=== PATIENT | male | born 1945 | race Hispanic/Latino ===

== ENCOUNTER 2017-03-04 08:02 | Day surgery (SDC) | payer OTHER, MEDICARE ==
[2017-02-27 14:07] LABS: BASOPHILS % 0.1 % (0.0-1.0); EOSINOPHILS # (AUTO) 0.4 (0.0-0.4); EOSINOPHILS % 5.2 % (0.0-6.0); HEMATOCRIT 35.1 % (38.2-49.6); HEMOGLOBIN 11.6 g/dL (14.0-18.0); LYMPHOCYTES % 27.3 % (18.0-39.1); MEAN CORPUSCULAR HEMOGLOBIN 30.3 pg (28-32); MEAN CORPUSCULAR VOLUME 91.6 fL (81-99); MONOCYTES # (AUTO) 0.6 (0.2-0.8); MONOCYTES % 8.3 % (4.4-11.3); NEUTROPHILS # (AUTO) 4.3 (2.1-6.9); PLATELET COUNT 281 x10e3/uL (140-360); RED BLOOD COUNT 3.83 x10e6/uL (4.3-5.7); RED CELL DISTRIBUTION WIDTH 13.2 % (11.7-14.4)
[2017-02-27 14:09] LABS: BILIRUBIN,URINE NEGATIVE (NEGATIVE); CLARITY,URINE CLEAR (CLEAR); COLOR,URINE YELLOW (YELLOW); KETONES,URINE NEGATIVE (NEGATIVE); LEUKOCYTE ESTERASE ,URINE NEGATIVE (NEGATIVE); NITRITE,URINE NEGATIVE (NEGATIVE); PROTEIN,URINE DIPSTICK NEGATIVE (NEGATIVE); URINE UROBILINOGEN 0.2 mg/dL (0.2 - 1)
[2017-02-27 14:27] LABS: ALBUMIN 3.8 g/dL (3.5-5.0); ALBUMIN/GLOBULIN RATIO 0.8 (0.8-2.0); ANION GAP 13.8 mmol/L (8-16); CALCIUM 9.5 mg/dL (8.4-10.2); CREATININE, SERUM 1.6 mg/dL (0.72-1.25); POTASSIUM 4.8 mmol/L (3.5-5.1)
--- NOTE | 2017-02-27 14:46 | Diagnostic Imaging Report ---
PROCEDURE: Frontal and lateral views of the chest. COMPARISON: Patients [facility], DX, CHEST SINGLE (PORTABLE), 11/28/2013, 23:05. INDICATIONS: PRE-OP FINDINGS: Lines/tubes: None. Lungs: Calcified granuloma in the right midlung again observed. There is no evidence of pneumonia or pulmonary edema. Pleura: Biapical pleural thickening with left apical calcification again observed. There is no pleural effusion or pneumothorax. Heart and mediastinum: The heart and the mediastinum are normal. Bones: No acute bony abnormality. Mild degenerative changes of the thoracic spine. Tubing projected on the upper abdomen on the lateral view for complete evaluation decubitus examination. IMPRESSION: 1. No acute thoracic abnormality. Cordell Bautista M.D. Dictated by: Cordell Bautista M.D. on 02/27/2017 at 14:53 Electronically approved by: Cordell Bautista M.D. on 02/27/2017 at 14:53
[~2017-03-04] VITALS: Ht 154.9 cm; Wt 76.2 kg
[~2017-03-04 08:02] MED LIST: ACETAMINOPHEN325 M1 PO; AMLODIPINE BESY10 MG PO; ASPIRIN EC81 MG PO; ATORVASTATIN CA20 MG PO; AUGMENTIN 875-1 EACH PO; CLOPIDOGREL75 MG PO; LABETALOL HCL100 MG PO; LOSARTAN-HCTZ1 EAC1 PO; MAGNESIUM OXID400 MG PO; METOPROLOL SUCC50 MG PO; NIFEDICAL XL30 MG PO; OMEGA-3 + VITA1 EAC1; PANTOPRAZOLE SO40 MG PO; PEPCID20 MG PO; PREDNISONE10 MG PO; SIMVASTATIN40 MG PO; SODIUM BICARBO650 MG PO; TRAZODONE HCL50 MG PO
[2017-03-04] MEDS ORDERED: LABETALOL HCL100 MG PO (08:37)
[2017-03-04] MEDS ORDERED: BUPIVACAINE 0.25%/EPI 30ML SDV INJ ONE (11:22)
[2017-03-04] MEDS ORDERED: IOPAMIDOL 610MG/1ML 300 MG/ML VIAL IV ONE (11:22)
[2017-03-04] MEDS ORDERED: LEVOFLOXACIN 500MG/D5W 100ML 100 ML IV ONE (11:23)
[2017-03-04] MEDS: SODIUM CHLORIDE 0.9% 1000ML 1,000 ML IV SCH ×2 (13:21→22:36)
[2017-03-04] MEDS ORDERED: ONDANSETRON HCL INJ 2 MG/ML VIAL IV PRN (13:30)
[2017-03-04] MEDS ORDERED: HYDROMORPHONE 1MG/1ML INJ IV PRN (13:30)
[2017-03-04] MEDS ORDERED: LEVOFLOXACIN 500MG/D5W 100ML 100 ML IV SCH (13:30)
[2017-03-04] MEDS ORDERED: HYDROMORPHONE 2MG/ML INJ IV PRN (13:45)
[2017-03-04] MEDS: PANTOPRAZOLE 40 MG 10ML VIAL IV SCH (14:45)
[2017-03-04] MEDS ORDERED: PANTOPRAZOLE 40 MG 10ML VIAL ONE (14:46)
[2017-03-04 14:56] VITALS: BP 177/81
[2017-03-04] MEDS: HYDROCODONE/APAP 7.5MG-325MG 1 EA TAB PO PRN ×2 (15:36→22:39)
[2017-03-04 16:07] VITALS: BP 177/81
[2017-03-04] MEDS ORDERED: LIDOCAINE HCL 2% LOCAL INJ 5 ML SDV VIAL INJ ONE (16:59)
[2017-03-04] MEDS ORDERED: NEOSTIGMINE 5 MG/5ML SYR ONE (16:59)
[2017-03-04] MEDS ORDERED: GLYCOPYRROLATE INJ 1MG/ 5 ML SYR ONE (16:59)
[2017-03-04] MEDS ORDERED: EPHEDRINE SULFATE INJ 50 MG/10 ML SYR ONE (16:59)
[2017-03-04] MEDS ORDERED: ONDANSETRON HCL INJ 2 MG/ML VIAL ONE (16:59)
[2017-03-04] MEDS ORDERED: PROPOFOL IV EMULSION 10 MG/ML 20 ML VIAL ONE (16:59)
[2017-03-04] MEDS ORDERED: SEVOFLURANE INHAL SOLN 250 ML PEN BTL ONE (16:59)
[2017-03-04] MEDS ORDERED: ROCURONIUM BROMIDE 10 MG/ML 5ML VIAL ONE (16:59)
[2017-03-04] MEDS ORDERED: DEXAMETHASONE SOD PHOS INJ 4 MG/ML VIAL ONE (16:59)
[2017-03-04] MEDS: LABETALOL HCL 100 MG TAB PO SCH (17:12)
[2017-03-04] MEDS ORDERED: FENTANYL CITRATE/PF 100MCG/2 ML INJ ONE (17:44)
[2017-03-04] MEDS ORDERED: MIDAZOLAM HCL 2 MG/2 ML VIAL ONE (17:44)
[2017-03-04 20:20] VITALS: BP 152/70
[2017-03-05 00:12] VITALS: BP 136/64
[2017-03-05 05:05] VITALS: BP 134/80
[2017-03-05 06:30] LABS: BASOPHILS % 0.1 % (0.0-1.0); HEMATOCRIT 29.2 % (38.2-49.6); HEMOGLOBIN 9.8 g/dL (14.0-18.0); LYMPHOCYTES # (AUTO) 1.2 (1.0-3.2); LYMPHOCYTES % 10.1 % (18.0-39.1); MEAN CORPUSCULAR HEMOGLOBIN 30.4 pg (28-32); MEAN CORPUSCULAR HGB CONC 33.6 g/dL (31-35); MEAN CORPUSCULAR VOLUME 90.7 fL (81-99); MONOCYTES # (AUTO) 0.9 (0.2-0.8); MONOCYTES % 7.1 % (4.4-11.3); NEUTROPHILS # (AUTO) 10.1 (2.1-6.9); NEUTROPHILS % 82.3 % (38.7-80.0); PLATELET COUNT 247 x10e3/uL (140-360); RED BLOOD COUNT 3.22 x10e6/uL (4.3-5.7); RED CELL DISTRIBUTION WIDTH 13.3 % (11.7-14.4)
[2017-03-05 07:02] LABS: ALBUMIN/GLOBULIN RATIO 0.8 (0.8-2.0); ANION GAP 12.2 mmol/L (8-16); CALCIUM 8.4 mg/dL (8.4-10.2); CREATININE, SERUM 1.29 mg/dL (0.72-1.25); POTASSIUM 4.2 mmol/L (3.5-5.1)
[2017-03-05 08:12] VITALS: BP 171/75
[2017-03-05] MEDS: LABETALOL HCL 100 MG TAB PO SCH (08:22)
[2017-03-05] MEDS: SODIUM CHLORIDE 0.9% 1000ML 1,000 ML IV SCH (08:35)
[2017-03-05] MEDS ORDERED: NIFEDIPINE CR 30 MG TAB PO SCH (09:00)
[2017-03-05] MEDS ORDERED: LEVOFLOXACIN 500MG/D5W 100ML 100 ML IV SCH (10:00)
[2017-03-05 12:11] VITALS: BP 160/72
[2017-03-05] MEDS: PANTOPRAZOLE 40 MG 10ML VIAL IV SCH (14:26)
[2017-03-05 15:00] VITALS: BP 180/74
[2017-03-05] MEDS ORDERED: HYDROMORPHONE 1MG/1ML INJ IV PRN (15:00)
--- NOTE | 2017-05-13 12:47 | Operative Report ---
DATE OF PROCEDURE: March 04, 2017 PREOPERATIVE DIAGNOSES: Cholecystitis, cholelithiasis, and retained common bile duct stent. POSTOPERATIVE DIAGNOSES: Cholecystitis, cholelithiasis, and retained common bile duct stent. OPERATIONS PERFORMED: Laparoscopic cholecystectomy and esophagogastroduodenoscopy with removal of biliary stent. GROCERY PACKER: Dr. Agustin Ruiz ANESTHESIA: General. COMPLICATIONS: None. ESTIMATED BLOOD LOSS: Minimal. DESCRIPTION OF PROCEDURE: With the patient lying in bed in the supine position under good general endotracheal anesthesia, the abdomen was prepped with Betadine solution and draped in the usual manner. Veress needle was introduced into the umbilicus and pneumoperitoneum was established without any difficulty. An 11 mm trocar was placed into the umbilicus and a 10 mm video laparoscope was placed into the intra-abdominal cavity. Under direct vision, three 5 mm trocars were placed in the right subcostal region. Video laparoscopy at this point revealed a gallbladder that contained multiple stones. There were no other major abnormalities identified in the abdominal cavity. The adhesions to the neck of the gallbladder were then taken down. The peritoneum overlying the neck of the gallbladder was then opened and the cystic duct was identified and followed to its junction with the common duct. The cystic duct was then circumferentially dissected away from the common duct, doubly clipped, and divided. The cystic artery was similarly doubly clipped and divided. Gallbladder was then slowly and carefully taken off the liver bed using the cautery scissors and perfect hemostasis was ascertained. The gallbladder was then grasped through the umbilical port and removed without any difficulty. Video laparoscopy was then again carried out. The liver bed was found to be perfectly dry. The excess fluid was aspirated. The pneumoperitoneum was evacuated and all the trocars were removed under direct vision. The midline fascia at the umbilicus was then closed with [id number] of 0 Vicryl. All layers were infiltrated on the way out with solution 0.25% Marcaine. Subcutaneous tissue was approximated with 3-0 Vicryl and the skin was closed with subcuticular 5-0 Vicryl. Benzoin, Steri-Strips, and Band-Aids were applied. Sponge, lap, and needle count was correct. The flexile Olympus gastroscope was then introduced into the back of throat and slowly and carefully advanced down the esophagus. The entire length of the esophagus was found to be within normal limits. The stomach was then entered and insufflated and found to be within normal limits as well. The pylorus was entered and the duodenum was found to be within normal limits. The stent was then easily visualized and was then grasped with a snare and removed out the mouth without any difficulty. The patient tolerated both procedures well and returned to the recovery room in stable condition. Job#: [id number] VAS
== END 2017-03-05 15:17 | disposition home or self-care (01) ==
LOC: OR 08:02 → IMCU 13:22
PROVIDERS: ADMIT Surgery; ATTEND Surgery
DX: K80.10 Calculus of gallbladder with chronic cholecystitis without obstruction (principal); Z45.89 Encounter for adjustment and management of other implanted devices; I25.10 Atherosclerotic heart disease of native coronary artery without angina pectoris; I12.9 Hypertensive chronic kidney disease with stage 1 through stage 4 chronic kidney disease, or unspecified chronic kidney disease; N18.9 Chronic kidney disease, unspecified; Z01.810 Encounter for preprocedural cardiovascular examination; Z01.812 Encounter for preprocedural laboratory examination; Z01.818 Encounter for other preprocedural examination; Z86.73 Personal history of transient ischemic attack (TIA), and cerebral infarction without residual deficits
CPT/HCPCS: 36415 ×2; 43247; 47562; 71020; 74300; 80053 ×2; 81003; 82150; 85025 ×2; 88304; 93005; C1766; G0378 ×2; J1100; J1956 ×2; J2001; J2250; J2405; J7030 ×2; Q9967; 43239

== ENCOUNTER 2020-02-23 17:53 | Inpatient (IN) | payer OTHER ==
[~2020-02-23] VITALS: Ht 154.9 cm; Wt 76.2 kg
[2020-02-23 18:58] LABS: BASOPHILS % 0.2 % (0.0-1.0); EOSINOPHILS % 0.5 % (0.0-6.0); HEMATOCRIT 31.7 % (38.2-49.6); HEMOGLOBIN 10.4 g/dL (14.0-18.0); LYMPHOCYTES # (AUTO) 0.5 (1.0-3.2); LYMPHOCYTES % 5.5 % (18.0-39.1); MEAN CORPUSCULAR HEMOGLOBIN 30.1 pg (28-32); MEAN CORPUSCULAR HGB CONC 32.8 g/dL (31-35); MEAN CORPUSCULAR VOLUME 91.6 fL (81-99); MONOCYTES # (AUTO) 0.3 (0.2-0.8); MONOCYTES % 3.9 % (4.4-11.3); NEUTROPHILS # (AUTO) 7.8 (2.1-6.9); NEUTROPHILS % 89.4 % (38.7-80.0); PLATELET COUNT 125 x10e3/uL (140-360); RED BLOOD COUNT 3.46 x10e6/uL (4.3-5.7); RED CELL DISTRIBUTION WIDTH 13.4 % (11.7-14.4)
--- NOTE | 2020-02-23 19:05 | Emergency Department Note ---
History of Present Illnes History of Present Illness Chief Complaint: General Medicine Complaints History of Present Illness This is a 74 year old male arrives the ED with complaints of fever, one episode of vomiting and concerns of blood pressure fluctuations. Patient denies any other complaints.. Chief Complaint Comment Patient in from home via EMS with reports of fever of unknown origin and blood pressure fluctuations that started yesterday. Patient reports he vomited once yesterday and checked his blood pressure after and it was high. This morning he checked his blood pressure and it was much better. Patient reports he called his PCP and told them about the fever and blood pressures and they told him to call 911 and go to the emergency room. Historian: Patient Arrival Mode: [place] Head Up Operator Required: No Onset (how long ago): day(s) Severity: mild Onset quality: sudden Duration (how long): day(s) Timing of current episode: constant Progression: unchanged Past Medical/Family History Physician Review I have reviewed the patient's past medical and family history. Any updates have been documented here. Past Medical History Recent Fever: Yes Clinical Suspicion of Infectio: Yes New/Unexplained Change in Ment: No Past Medical History: Hypertension, Diabetes, Hyperlipedemia Other Medical History: CAROTID STENOSIS HYPERLIPIDEMIA Past Surgical History: Appendectomy Other Surgery: Carotid endarterectomy Other Last Tetanus: UNK Review of Systems Review of Systems Constitutional: Reports as per HPI, Reports chills, Reports fever EENTM: Reports no symptoms Cardiovascular: Reports no symptoms Respiratory: Reports no symptoms Gastrointestinal: Reports no symptoms Genitourinary: Reports no symptoms Musculoskeletal: Reports no symptoms Integumentary: Reports no symptoms Neurological: Reports as per HPI, Reports weakness Psychological: Reports no symptoms Endocrine: Reports no symptoms Hematological/Lymphatic: Reports no symptoms Physical Exam Related Data Allergies: Coded Allergies: amoxicillin (Verified Allergy, Intermediate, RASH, 03/01/17) clavulanic acid (Verified Allergy, Intermediate, RASH, 03/01/17) Triage Vital Signs Vital Signs Date Time Temp Pulse Resp B/P (MAP) Pulse Ox O2 Delivery O2 Flow Rate FiO2 02/23/20 18:21 102.7 89 18 160/57 100 Room Air Vital signs reviewed: Yes Physical Exam CONSTITUTIONAL Constitutional: Present well-developed, Present well-nourished HENT HENT: Present normocephalic, Present atraumatic, Present oropharynx clear/moist, Present nose normal HENT L/R: Present left ext ear normal, Present right ext ear normal EYES Eyes: Reports PERRL, Reports conjunctivae normal NECK Neck: Present ROM normal PULMONARY Pulmonary: Present effort normal, Present breath sounds normal CARDIOVASCULAR Cardiovascular: Present regular rhythm, Present heart sounds normal, Present capillary refill normal, Present normal rate GASTROINTESTINAL Abdominal: Present soft, Present nontender, Present bowel sounds normal GENITOURINARY Genitourinary: Present exam deferred SKIN Skin: Present warm, Present dry MUSCULOSKELETAL Musculoskeletal: Present ROM normal NEUROLOGICAL Neurological: Present alert, Present oriented x 3, Present no gross motor or sensory deficits PSYCHOLOGICAL Psychological: Present mood/affect normal, Present judgement normal Results Laboratory Result Diagram: 02/23/20 1836 Laboratory Laboratory Tests Test 02/23/20 18:36 White Blood Count 8.75 x10e3/uL (4.8-10.8) Red Blood Count 3.46 x10e6/uL (4.3-5.7) Hemoglobin 10.4 g/dL (14.0-18.0) Hematocrit 31.7 % (38.2-49.6) Mean Corpuscular Volume 91.6 fL (81-99) Mean Corpuscular Hemoglobin 30.1 pg (28-32) Mean Corpuscular Hemoglobin Concent 32.8 g/dL (31-35) Red Cell Distribution Width 13.4 % (11.7-14.4) Platelet Count 125 x10e3/uL (140-360) Neutrophils (%) (Auto) 89.4 % (38.7-80.0) Lymphocytes (%) (Auto) 5.5 % (18.0-39.1) Monocytes (%) (Auto) 3.9 % (4.4-11.3) Eosinophils (%) (Auto) 0.5 % (0.0-6.0) Basophils (%) (Auto) 0.2 % (0.0-1.0) Neutrophils # (Auto) 7.8 (2.1-6.9) Lymphocytes # (Auto) 0.5 (1.0-3.2) Monocytes # (Auto) 0.3 (0.2-0.8) Eosinophils # (Auto) 0.0 (0.0-0.4) Basophils # (Auto) 0.0 (0.0-0.1) Absolute Immature Granulocyte (auto 0.04 x10e3/uL (0-0.1) Lab results reviewed: Yes Laboratory comments Laboratory Tests Test 02/24/20 01:07 02/23/20 21:17 02/23/20 20:15 02/23/20 18:36 Creatine Kinase 170 IU/L (30-200) 147 IU/L (30-200) Creatine Kinase MB 1.00 ng/mL (0-5.0) 1.40 ng/mL (0-5.0) Troponin I 0.031 ng/mL (0-0.300) 0.038 ng/mL (0-0.300) Urine Color Yellow (YELLOW) Urine Clarity Clear (CLEAR) Urine pH 6.5 (5 - 7) Urine Specific [place] 1.020 (1.010-1.025) Urine Protein 2+ (NEGATIVE) Urine Glucose (UA) Negative (NEGATIVE) Urine Ketones Negative (NEGATIVE) Urine Blood Moderate (NEGATIVE) Urine Nitrite Negative (NEGATIVE) Urine Bilirubin Negative (NEGATIVE) Urine Urobilinogen 0.2 mg/dL (0.2 - 1) Urine Leukocyte Esterase Negative (NEGATIVE) Urine RBC 6-10 /HPF (0-5) Urine WBC 0-5 /HPF (0-5) Urine Epithelial Cells Few /LPF (NONE) Urine Amorphous Sediment Few (FEW) Urine Bacteria Moderate /HPF (NONE) Coronavirus (PCR) Not detected (NOTDETECTED) White Blood Count 8.75 x10e3/uL (4.8-10.8) Red Blood Count 3.46 x10e6/uL (4.3-5.7) Hemoglobin 10.4 g/dL (14.0-18.0) Hematocrit 31.7 % (38.2-49.6) Mean Corpuscular Volume 91.6 fL (81-99) Mean Corpuscular Hemoglobin 30.1 pg (28-32) Mean Corpuscular Hemoglobin Concent 32.8 g/dL (31-35) Red Cell Distribution Width 13.4 % (11.7-14.4) Platelet Count 125 x10e3/uL (140-360) Neutrophils (%) (Auto) 89.4 % (38.7-80.0) Lymphocytes (%) (Auto) 5.5 % (18.0-39.1) Monocytes (%) (Auto) 3.9 % (4.4-11.3) Eosinophils (%) (Auto) 0.5 % (0.0-6.0) Basophils (%) (Auto) 0.2 % (0.0-1.0) Neutrophils # (Auto) 7.8 (2.1-6.9) Lymphocytes # (Auto) 0.5 (1.0-3.2) Monocytes # (Auto) 0.3 (0.2-0.8) Eosinophils # (Auto) 0.0 (0.0-0.4) Basophils # (Auto) 0.0 (0.0-0.1) Absolute Immature Granulocyte (auto 0.04 x10e3/uL (0-0.1) Sodium Level 132 mmol/L (136-145) Potassium Level 4.3 mmol/L (3.5-5.1) Chloride Level 100 mmol/L (98-107) Carbon Dioxide Level 23 mmol/L (22-29) Anion Gap 13.3 mmol/L (8-16) Blood Urea Nitrogen 50 mg/dL (7-26) Creatinine 3.20 mg/dL (0.72-1.25) Estimat Glomerular Filtration Rate 19 ML/MIN (60-) BUN/Creatinine Ratio 16 (6-25) Glucose Level 115 mg/dL (74-118) Lactic Acid Level 1.3 mmol/L (0.5-2.0) Calcium Level 8.4 mg/dL (8.4-10.2) Total Bilirubin 1.0 mg/dL (0.2-1.2) Aspartate Amino Transf (AST/SGOT) 35 IU/L (5-34) Alanine Aminotransferase (ALT/SGPT) 41 IU/L (0-55) Alkaline Phosphatase 59 IU/L (40-150) Total Protein 8.6 g/dL (6.5-8.1) Albumin 3.4 g/dL (3.5-5.0) Globulin 5.2 g/dL (2.3-3.5) Albumin/Globulin Ratio 0.7 (0.8-2.0) Lipase 45 U/L (8-78) Imaging Imaging results reviewed: Yes Impressions IMPRESSION: 1. Findings may reflect bilateral lower lobe infection (pneumonia) or inflammatory etiology. 2. Diverticulosis coli without diverticulitis. 3. Bilateral high attenuation renal lesions, the largest in the lower pole of the left measuring 1.6 cm may represent hyperdense cyst, however, not fully evaluated with this noncontrast exam. Given the presence of mild retroperitoneal lymphadenopathy, recommend further evaluation with nonemergent CT abdomen pelvis without and with contrast renal mass protocol. 4. Mild retroperitoneal and pelvic lymphadenopathy may represent neoplastic etiology. 5. Enlarged prostate. Signed by: Dr. Cordell Bautista M.D. on 02/23/2020 9:21 PM Critical Care Time Total Critical Care Time (min): 75 Critical care time exclusive o: separately billable procedures Critcal care necessary due to: sepsis, shock Assessment & Plan Medical Decision Making MDM 74-year-old male ED with initial complaints of fever and plus routing blood pressures. Initially concerns for severe sepsis 02/23/200 are present and patient was treated as impending sepsis. Patient's chest x-ray and CT scan were concerning for bilateral pneumonia which was the source of his infection. Patient had acute renal failure which was a cause for organ dysfunction. Patient met SIRS criteria on arrival. Blood cultures and lactic acid as well as broad-spectrum antibiotics given. Lactic acid noted to be 1.3 and there were no indications for repeat Concerns of septic shock present at 2300 with 2 blood pressures resulting in a map less than 65 weight based volume reassessment, 30 mL/kg bolus resulting in the need for 2300 mL of normal saline. 2330 Volume reassessment done after fluid bolus with improvement noted Patient's initial EKG read ST elevations, however, there were no reciprocal changes and patient does not have active chest pain and I attribute the latter to early repolarization Patient's repeat EKG done approximately 2 hours later was concerning for dynamic changes resulting in T-wave inversions the inferior lateral leads Cardiology was consulted at 0115 (Dr. Castle) and EKG findings are reviewed, given the fact patient is not having active chest pain no indications for heparinization or Lab at this time. Patient will require serial cardiac monitors for reassessment and monitoring. Patient admitted the general medical floor for further workup and management. Assessment & Plan Final Impression: (1) Septic shock (2) Pneumonia (3) Acute renal failure Depart Disposition: ADMITTED Last Vital Signs Date Time Temp Pulse Resp B/P (MAP) Pulse Ox O2 Delivery O2 Flow Rate FiO2 02/23/20 18:21 102.7 89 18 160/57 100 Room Air Home Meds Reported Medications Labetalol Hcl (LABETALOL HCL) 100 Mg Tablet, 50 MG PO BID, #30 TAB 03/04/17 Clopidogrel Bisulfate (CLOPIDOGREL) 75 Mg Tablet, 75 MG PO DAILY, #30 TAB 01/12/17 Atorvastatin Calcium (ATORVASTATIN CALCIUM) 20 Mg Tablet, 40 MG PO HS, #30 TAB 01/12/17 Nifedipine (NIFEDICAL XL) 30 Mg Tab.er.24, 30 MG PO DAILY, TAB 04/03/16 WINSOME BURCH DO Feb 23, 2020 19:05
[2020-02-23 19:22] LABS: ALBUMIN 3.4 g/dL (3.5-5.0); ALBUMIN/GLOBULIN RATIO 0.7 (0.8-2.0); ANION GAP 13.3 mmol/L (8-16); CALCIUM 8.4 mg/dL (8.4-10.2); CREATININE, SERUM 3.2 mg/dL (0.72-1.25); POTASSIUM 4.3 mmol/L (3.5-5.1)
[2020-02-23] MEDS ORDERED: ACETAMINOPHEN 325 MG TAB PO ONE (20:00)
[2020-02-23 20:41] LABS: CREATINE KINASE MB 1.4 ng/mL (0-5.0)
[2020-02-23] MEDS ORDERED: CEFTRIAXONE SOD 1 GM/NS 50 ML 50 ML IV ONE (20:45)
--- NOTE | 2020-02-23 20:58 | Diagnostic Imaging Report ---
EXAMINATION: CHEST SINGLE (PORTABLE) INDICATION: Chest pain. Fever. COMPARISON: None. Correlation with CT abdomen performed on the same day. FINDINGS: TUBES and LINES: None. LUNGS: Lungs are well inflated. Lungs are clear. There is no evidence of pneumonia or pulmonary edema. PLEURA: Biapical pleural scarring with left apical pleural versus parenchymal calcifications. Surgical clips projected on the lower right neck. Diffuse coarsening of the pulmonary interstitium. Mild patchy density in the right lung base. No pleural effusion or pneumothorax. HEART AND MEDIASTINUM: The cardiomediastinal silhouette is unremarkable. BONES AND SOFT TISSUES: No acute osseous lesion. Soft tissues are unremarkable. UPPER ABDOMEN: No free air under the diaphragm. IMPRESSION: Mild patchy density in the right lung base best seen on the CT abdomen from the same day which included the lung bases; it may reflect infectious or inflammatory etiology. Please refer to CT abdomen report. Signed by: Dr. Cordell Bautista M.D. on 02/23/2020 8:55 PM
--- NOTE | 2020-02-23 21:25 | Diagnostic Imaging Report ---
EXAM: CT Abdomen and Pelvis WITHOUT contrast INDICATION: Fever. Pain. Vomiting. COMPARISON: None. TECHNIQUE: Abdomen and pelvis were scanned utilizing a multidetector helical scanner from the lung base to the pubic symphysis without administration of IV contrast. Absence of intravenous contrast decreases sensitivity for detection of focal lesions and vascular pathology. Coronal and sagittal reformations were obtained. Routine protocol was performed. IV CONTRAST: None. ORAL CONTRAST: Water RADIATION DOSE: Total DLP: 559.65 mGy*cm Estimated effective dose: (DLP x 0.015 x size factor) mSv COMPLICATIONS: None FINDINGS: LINES and TUBES: None. LOWER THORAX: Patchy and nodular densities in the right lung base may reflect infectious or inflammatory etiology. Aspiration could also have this appearance. Mild left basilar subsegmental atelectasis. Severe calcifications of the mitral valve. Mild calcifications of the aortic valve. Right coronary artery calcifications. HEPATOBILIARY: No focal hepatic lesions. No biliary ductal dilation. GALLBLADDER: There are cholecystectomy clips. . SPLEEN: No splenomegaly. PANCREAS: No focal masses or ductal dilatation. ADRENALS: No adrenal nodules KIDNEYS/URETERS: No hydronephrosis. 2.8 cm low-attenuation lesion in the posterior interpolar region of the left kidney on image 32 series 2. 1.4 cm low-attenuation lesion exophytic of the lateral interpolar region of the left kidney on image 31. Numerous subcentimeter high attenuation lesions scattered throughout the renal cortex bilaterally are too small to be characterize and no further evaluated due to the lack of contrast. There is also a 1.6 cm high attenuation lesion exophytic of the posterior lower pole of the left kidney on image 39. No stones. GI TRACT: No abnormal distention, wall thickening, or evidence of bowel obstruction. There are diverticula within the colon without evidence of diverticulitis. Appendix is normal. PELVIC ORGANS/BLADDER: The prostate is enlarged measuring 5.4 x 4.8 cm in axial dimensions on image 79; it exerts mild mass effect on the posterior urinary bladder. LYMPH NODES: Multiple mildly enlarged lymph nodes scattered throughout the retroperitoneum; for instance, a retrocaval lymph node measures 2.8 cm on image 32. A left aortic lymph node measures 1.0 cm in short axis on image 35. A left periaortic lymph node measures 1.0 cm in short axis on image 38. There are also mildly enlarged pelvic lymph nodes bilaterally, the largest in the right external chain measuring 1.3 cm in short axis on image 74. Left external iliac lymph node measures 1.1 cm on image 76. Left obturator lymph node measures 1.2 cm on image 68. VESSELS: There is severe atherosclerotic disease in the aorta and major arterial branches. PERITONEUM / RETROPERITONEUM: No free air or fluid. BONES: There are degenerative changes in the lumbar spine. SOFT TISSUES: Unremarkable. IMPRESSION: 1. Findings may reflect bilateral lower lobe infection (pneumonia) or inflammatory etiology. 2. Diverticulosis coli without diverticulitis. 3. Bilateral high attenuation renal lesions, the largest in the lower pole of the left measuring 1.6 cm may represent hyperdense cyst, however, not fully evaluated with this noncontrast exam. Given the presence of mild retroperitoneal lymphadenopathy, recommend further evaluation with nonemergent CT abdomen pelvis without and with contrast renal mass protocol. 4. Mild retroperitoneal and pelvic lymphadenopathy may represent neoplastic etiology. 5. Enlarged prostate. Signed by: Dr. Cordell Bautista M.D. on 02/23/2020 9:21 PM
[2020-02-23 21:41] LABS: BILIRUBIN,URINE NEGATIVE (NEGATIVE); CLARITY,URINE CLEAR (CLEAR); COLOR,URINE YELLOW (YELLOW); KETONES,URINE NEGATIVE (NEGATIVE); LEUKOCYTE ESTERASE ,URINE NEGATIVE (NEGATIVE); NITRITE,URINE NEGATIVE (NEGATIVE); PROTEIN,URINE DIPSTICK 2+ (NEGATIVE); URINE UROBILINOGEN 0.2 mg/dL (0.2 - 1)
[2020-02-23 21:45] LABS: WBC,URINE (MAN) 0-5 /HPF (0-5)
[2020-02-23 21:46] LABS: AMORPHOUS SEDIMENT,URINE FEW (FEW); BACTERIA,URINE MODERATE /HPF; EPITHELIAL CELLS,URINE FEW /LPF
[2020-02-23] MEDS ORDERED: SODIUM CHLORIDE 0.9% 50ML 50 ML ONE (23:18)
[2020-02-23] MEDS ORDERED: SODIUM CHLORIDE 0.9% 1000ML 1,000 ML IV STA (23:19)
[2020-02-23] MEDS ORDERED: SODIUM CHLORIDE 0.9% 1000ML 2,000 ML ONE (23:19)
[2020-02-23] MEDS ORDERED: SODIUM CHLORIDE 0.9% 250ML 250 ML ONE (23:19)
[2020-02-23] MEDS ORDERED: SODIUM CHLORIDE 0.9% 250ML 250 ML IV ONE (23:30)
[2020-02-23] MEDS ORDERED: SODIUM CHLORIDE 0.9% 1000ML 1,000 ML IV ONE (23:30)
[2020-02-23] MEDS ORDERED: SODIUM CHLORIDE 0.9% 50ML 50 ML IV ONE (23:30)
[2020-02-24] VITALS (9 sets, daily range): BP systolic 100–159; BP diastolic 46–65
[2020-02-24] MEDS ORDERED: ACETAMINOPHEN 325 MG TAB PO PRN (01:00)
--- NOTE | 2020-02-24 02:30 | NUR ---
RECEIVE PATIENT FROM THE EMERGENCY ROOM VIA WHEELCHAIR. PATIENT IS ORIENTED. CAN AMBULATE INDEPENDENTLY. TELEMETRY IN PLACE. CALL LIGHT WITHIN REACHED. NO COMPLAIN AT THIS TIME.
[2020-02-24] MEDS ORDERED: GLIMEPIRIDE2 MG PO (03:59)
[2020-02-24] MEDS ORDERED: CRESTOR10 MG PO (03:59)
[2020-02-24] MEDS ORDERED: PROTONIX20 MG PO (04:00)
[2020-02-24 05:48] LABS: BASOPHILS % 0.2 % (0.0-1.0); EOSINOPHILS % 0.1 % (0.0-6.0); HEMATOCRIT 26.9 % (38.2-49.6); HEMOGLOBIN 8.8 g/dL (14.0-18.0); LYMPHOCYTES % 9.2 % (18.0-39.1); MEAN CORPUSCULAR HEMOGLOBIN 30.9 pg (28-32); MEAN CORPUSCULAR HGB CONC 32.7 g/dL (31-35); MEAN CORPUSCULAR VOLUME 94.4 fL (81-99); MONOCYTES # (AUTO) 1.2 (0.2-0.8); MONOCYTES % 11.7 % (4.4-11.3); NEUTROPHILS # (AUTO) 8.3 (2.1-6.9); NEUTROPHILS % 78.3 % (38.7-80.0); PLATELET COUNT 94 x10e3/uL (140-360); RED BLOOD COUNT 2.85 x10e6/uL (4.3-5.7); RED CELL DISTRIBUTION WIDTH 13.7 % (11.7-14.4)
[2020-02-24 06:10] LABS: ALBUMIN 2.5 g/dL (3.5-5.0); ALBUMIN/GLOBULIN RATIO 0.6 (0.8-2.0); ANION GAP 10.1 mmol/L (8-16); CALCIUM 7.5 mg/dL (8.4-10.2); CREATININE, SERUM 2.95 mg/dL (0.72-1.25); POTASSIUM 4.1 mmol/L (3.5-5.1)
[2020-02-24 06:45] LABS: CREATINE KINASE MB 1.5 ng/mL (0-5.0)
--- NOTE | 2020-02-24 08:00 | NUR ---
RECEIVED PATIENT RESTING IN BED. PT IN STABLE CONDITION. RESPIRATIONS EVEN AND BREATHING UNLABORED. TELE APPLIED. NO C/O PAIN VERBALIZED. CALL LIGHT WITHIN REACH. WILL CONTINUE TO MONITOR.
[2020-02-24] MEDS ORDERED: ALBUTEROL/IPRATROPIUM 3 ML NEB NEB PRN (09:15)
[2020-02-24] MEDS ORDERED: DEXTROSE 50% SYRINGE 50 ML IV PRN (09:15)
[2020-02-24] MEDS ORDERED: BENZONATATE 100 MG CAP PO PRN (09:15)
[2020-02-24] MEDS: ALBUTEROL/IPRATROPIUM 3 ML NEB NEB SCH ×3 (09:35→19:55)
[2020-02-24] MEDS: INSULIN LISPRO 100 UNIT/1 ML 3ML VIAL SQ SCH ×3 (11:30→20:34)
[2020-02-24] MEDS ORDERED: SODIUM CHLORIDE 0.9% 250ML 250 ML ONE (11:40)
[2020-02-24] MEDS: AZITHROMYCIN 500MG/NS 250 ML 250 ML IV SCH (11:48)
--- NOTE | 2020-02-24 13:01 | NUR ---
CALLED LAB AND SPOKE TO LUIS TO ADD CULTURE SENSITIVITY FROM URINE COLLECTED 02/23/2020. HE VERBALIZED UNDERSTANDING.
[2020-02-24 14:09] LABS: CREATINE KINASE MB 1.8 ng/mL (0-5.0)
--- NOTE | 2020-02-24 14:32 | NUR ---
[facility] BLOOD CULTURE GRAM NEGATIVE BACILLI.
--- NOTE | 2020-02-24 14:37 | NUR ---
SPOKE TO DR. MARTELL REGARDING CONSULT PER DR. FOUNTAIN FOR URINE SEPSIS. HE VERBALIZED UNDERSTANDING.
--- NOTE | 2020-02-24 17:53 | Consultation ---
DATE OF CONSULTATION: 02/24/2020 Urology Consultation REASON FOR CONSULTATION: Renal lesions. HISTORY OF PRESENT ILLNESS: Murtaza Quinn is a 74-year-old man, who denies any previous urological evaluation. He does report having 1-2 times per night nocturia. Denies any urinary incontinence. Denies urolithiasis and urinary tract infection. The patient was admitted and evaluated in the emergency room with complaints of blood pressure fluctuations. He was admitted, renal lesions were noted on CT and urological consultation was sought. PAST MEDICAL SURGICAL HISTORY: 1. Hypertension. 2. Diabetes mellitus. 3. Hyperlipidemia. 4. Carotid stenosis. 5. Status post endarterectomy. 6. Hyperlipidemia. 7. Status post appendectomy. CURRENT MEDICATIONS: Please refer to the MAR. 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 Denies smoking, ethanol, and drug use. FAMILY HISTORY: Noncontributory to the active urological problems. CURRENT MEDICATIONS: Please refer to the MAR. ALLERGIES: AMOXICILLIN AND CLAVULANIC ACID (THIS IS UNLIKELY HE IS PROBABLY JUST ALLERGIC TO AMOXICILLIN IF IT IS A TRUE ALLERGY). REVIEW OF SYSTEMS: Discussed as above history of present illness past medical history, otherwise negative for all systems. PHYSICAL EXAMINATION: GENERAL: Elderly man lying in bed, in no apparent distress. VITAL SIGNS: His temperature maximum is 103.3, and his vital signs are stable. He is afebrile. ABDOMEN: Soft, nondistended, and nontender without costovertebral angle tenderness. Kidneys not palpable without hepatosplenomegaly. No obvious evidence of hernia. GENITOURINARY: Testes descended bilaterally. Testes and epididymides are bilaterally palpably normal. The patient has a normal circumcised appearing penis with normal meatus without any lesion. Digital rectal examination is deferred at the present time. For the remaining physical examination systems, please refer to the admission history and physical on the chart. LABORATORY STUDIES: Urinalysis is significant for 2+ protein with 6-10 RBCs and moderate bacteria. The patient's sodium is low at 133, creatinine is elevated at 2.95, today it was elevated at 3.2, calcium is low at 7.5. White blood cell count is 10,630, hemoglobin 8.8, and platelets 94,000. COVID is negative. Blood cultures are pending x2. Urine culture is not pending, yet. CT scan of the abdomen and pelvis reveals bilateral renal cysts, one of it may be complex. The patient also has a very large prostate. Unfortunately, the radiologist only discussed the favor measuring this three-dimensional organ in two dimensions. There is retroperitoneal and pelvic lymphadenopathy that could potentially represent a neoplastic etiology. ASSESSMENT: 1. Probable urinary tract infection. 2. Microhematuria. 3. Nocturia. 4. Fevers. 5. Proteinuria. 6. Hyponatremia. 7. Chronic renal insufficiency. 8. Hypocalcemia. 9. Anemia. 10. Thrombocytopenia. 11. BPH. 12. Pelvic as well as retroperitoneal lymphadenopathy. PLAN: 1. Await urine culture and sensitivity. 2. I asked the patient's nurse to call the lab and add the urine culture and sensitivity to the urinalysis from yesterday's ER sample. 3. Hematological and electrolyte abnormalities per the primary team. 4. Current choice of antibiotics per the primary team is awaiting results. 5. The patient needs ongoing urological followup for followup of these renal lesions. Pelvic lymphadenopathy may be addressed. Once the patient is in his normal state of health, prostate cancer screening will be pursued as well as potential evaluation of lymphadenopathy. Thank you very much for involving us in care of your patient. We will be happy to follow along with you as well as an outpatient. Yvan Oliver MD [place]/MODL /[id number] cc: Ishaan Morrison MD
--- NOTE | 2020-02-24 17:58 | History and Physical ---
CHIEF COMPLAINT: Fever 102, fluctuating blood pressure, and elevated blood pressure. HISTORY OF PRESENT ILLNESS: The patient is a 74-year-old male with fever 102. The patient checked his blood pressure was fluctuating and at time very high. Therefore, the patient called his primary care physician, Dr. Ishaan Morrison and was told to go to the emergency room for evaluation. The patient came to the emergency room for evaluation. The patient's lab work showed that he has anemia, but more importantly his BUN and creatinine were 49 and 2.9. Baseline renal function is unknown at this time. His creatine kinase is 227. His troponin I was negative. The patient's WBC was normal. Urinalysis; moderate bacteria with negative leukocyte esterase and his COVID-19 PCR was negative. More importantly, his chest x-ray and abdominal and pelvic CT scan consistent with bibasilar pneumonia, worse on the right compared to the left. The patient is otherwise stable. He is admitted for treatment for his pneumonia. The patient's fever has improved since his antibiotic and Tylenol was given. PAST MEDICAL HISTORY: Hypertension, diabetes type 2, dyslipidemia, and carotid stenosis. He has carotid endarterectomy, appendectomy, and cholecystectomy. SOCIAL HISTORY: The patient does not smoke or use alcohol. No regular drug. ALLERGIES: TO AMOXICILLIN AND CLAVULANIC ACID. HOME MEDICATIONS: The patient is on Plavix, Amaryl, labetalol, nifedipine XL, pantoprazole, and Crestor. PHYSICAL EXAMINATION: VITAL SIGNS: Temperature is 98, blood pressure 120/46, pulse rate 64, and respirations 18. GENERAL: The patient is not in acute distress. Awake. HEENT: Normocephalic and atraumatic. He is anicteric. NECK: Supple grossly. PULMONARY: Diminished breath sounds bilaterally with coarses at the bases. CARDIOVASCULAR: S1 and S2. Regular rate and rhythm. ABDOMEN: Soft. Unremarkable. EXTREMITIES: No cyanosis or edema. NEUROLOGIC: No focal deficit. LABORATORY DATA: Sodium is 133, potassium 4.1, chloride 106, bicarb 21, BUN 49, creatinine 2.9, and glucose 164. WBC is 8.7, hemoglobin 10.4, hematocrit 31.7, and platelets is 125. Urinalysis; 2+ protein, moderate bacteria. Serology test COVID-[address] PCR negative. [address]dominal and pelvic CT scan showed no splenomegaly. There is patchy and nodular density in the right lung base. There is also mild left subsegmental atelectasis. Had diverticulosis coli without diverticulitis. Had bilateral high attenuation renal lesion. The largest in the lower pole of the left, measuring 1.6 cm, may represent hyperdense cyst. Enlarged prostate. Mild retroperitoneal and pelvic lymphadenopathy. IMPRESSION: 1. Bibasilar pneumonia. 2. Fever of 102, resolving. 3. Chronic kidney disease with acute renal failure, possible acute tubular necrosis, possible dehydration. PLAN: IV antibiotics. Fluid rehydration. Continue to monitor the patient closely. Because of his renal cyst noticed on the left more so than the right, Urology consultation obtained. With respect to his acute kidney injury, we will monitor his BMP in the morning. His anemia could be chronically from chronic kidney disease. We will monitor the patient closely at this time. MD MIKALA Gan/CANL /[id number]
--- NOTE | 2020-02-24 19:00 | NUR ---
Received change of shift report from AM nurse. Walking rounds completed.
[2020-02-24] MEDS: LABETALOL HCL 100 MG TAB PO SCH (19:26)
[2020-02-24] MEDS: SODIUM CHLORIDE 0.9% 1000ML 1,000 ML IV SCH (19:49)
--- NOTE | 2020-02-24 19:51 | NUR ---
PT RESTING IN BED. RESPIRATIONS EVEN AND BREATHING UNLABORED. NO C/O PAIN VERBALIZED. TELE APPLIED. REPORT GIVEN TO ONCOMING NURSE.
--- NOTE | 2020-02-24 20:21 | NUR ---
Patient in bed with at bedside. No c/o pain at this time. Continue monitor.
[2020-02-24] MEDS: SIMVASTATIN 20 MG TAB PO SCH (20:33)
[2020-02-24] MEDS ORDERED: CEFTRIAXONE SOD 1 GM/NS 50 ML 50 ML IV SCH (21:00)
[2020-02-25] VITALS (8 sets, daily range): BP systolic 125–147; BP diastolic 51–63
[2020-02-25] MEDS: ALBUTEROL/IPRATROPIUM 3 ML NEB NEB SCH ×4 (01:30→20:09)
[2020-02-25] MEDS: SODIUM CHLORIDE 0.9% 1000ML 1,000 ML IV SCH ×3 (05:00→20:37)
[2020-02-25 06:30] LABS: BASOPHILS % 0.2 % (0.0-1.0); EOSINOPHILS # (AUTO) 0.2 (0.0-0.4); EOSINOPHILS % 1.9 % (0.0-6.0); HEMATOCRIT 25.9 % (38.2-49.6); HEMOGLOBIN 8.4 g/dL (14.0-18.0); LYMPHOCYTES # (AUTO) 1.1 (1.0-3.2); LYMPHOCYTES % 12.8 % (18.0-39.1); MEAN CORPUSCULAR HEMOGLOBIN 30.3 pg (28-32); MEAN CORPUSCULAR HGB CONC 32.4 g/dL (31-35); MEAN CORPUSCULAR VOLUME 93.5 fL (81-99); MONOCYTES # (AUTO) 1.4 (0.2-0.8); MONOCYTES % 16.7 % (4.4-11.3); NEUTROPHILS # (AUTO) 5.8 (2.1-6.9); PLATELET COUNT 79 x10e3/uL (140-360); RED BLOOD COUNT 2.77 x10e6/uL (4.3-5.7); RED CELL DISTRIBUTION WIDTH 13.8 % (11.7-14.4)
[2020-02-25 06:55] LABS: ANION GAP 9.7 mmol/L (8-16); CALCIUM 7.5 mg/dL (8.4-10.2); CREATININE, SERUM 2.44 mg/dL (0.72-1.25); POTASSIUM 3.7 mmol/L (3.5-5.1)
[2020-02-25] MEDS: INSULIN LISPRO 100 UNIT/1 ML 3ML VIAL SQ SCH ×4 (07:30→20:37)
--- NOTE | 2020-02-25 07:30 | NUR ---
PT RESTING IN BED. RESPIRATIONS EVEN AND BREATHING UNLABORED. PT IN STABLE CONDITION. TELE APPLIED. NO C/O PAIN VERBALIZED. CALL LIGHT WITHIN REACH. WILL CONTINUE TO MONITOR.
[2020-02-25] MEDS: CLOPIDOGREL BISULFATE 75 MG TAB PO SCH (08:56)
[2020-02-25] MEDS: NIFEDIPINE CR 30 MG TAB PO SCH (08:56)
[2020-02-25] MEDS: LABETALOL HCL 100 MG TAB PO SCH ×2 (08:57→16:05)
[2020-02-25] MEDS: PANTOPRAZOLE SOD 40 MG TABEC PO SCH (08:57)
--- NOTE | 2020-02-25 09:11 | Progress Note ---
DATE: 02/25/2020 The patient is transferring to Dr. Eliud Snider service. PRIMARY CARE PHYSICIAN: Dr. Ishaan Morrison. Dr. Snider is requesting to transfer the patient to his service. I am transferring the patient to Dr. Snider's service today at 0845 hours, February 25, 2020. Dr. Snider will see the patient today. I did not see the patient. MD MIKALA Gan/BLUE /[id number]
--- NOTE | 2020-02-25 09:56 | NUR ---
DR. ADRIENNE YUAN HAS BEEN CONSULTED ATTENDING. TO SEE PT TODAY.
[2020-02-25] MEDS: AZITHROMYCIN 500MG/NS 250 ML 250 ML IV SCH (10:40)
--- NOTE | 2020-02-25 15:42 | Consultation ---
DATE OF CONSULTATION: 02/25/2020 REASON FOR CONSULTATION: UTI, fever, and chills. HISTORY OF PRESENT ILLNESS: This is a 74-year-old male, who has history of hypertension, diabetes mellitus, hyperlipidemia, atherosclerotic disease, peripheral vascular disease, carotid stenosis status post endarterectomy, hyperlipidemia, and appendectomy, comes in with fever and chills for one day, not feeling well. The patient comes to the emergency room, where he was admitted and started on antibiotic. His blood cultures are showing gram-negative rods. I am asked to see him. The patient, who is currently alert and oriented. He has no complaints whatsoever. MEDICATIONS: He is on DuoNeb. He is on azithromycin, Rocephin, Procardia, Plavix, and Zocor. REVIEW OF SYSTEMS: As mentioned above, he denies any urgency, frequency, nausea, vomiting, diarrhea, all within normal limits. FAMILY HISTORY: Unremarkable. PHYSICAL EXAMINATION: GENERAL: At the present time, he is alert and oriented. Does not seem to be in acute distress. VITAL SIGNS: Stable, currently afebrile. HEENT: He is not pale. Not icteric. NECK: Supple. CHEST: Clear. HEART: S1 and S2. ABDOMEN: Soft. Bowel sounds present. EXTREMITIES: No edema. SKIN: No rash. LABORATORY DATA: His CAT scan showed bilateral lower lobe pneumonia, maybe infection, diverticulosis, and renal lesions. Reviewed. Chart reviewed. Sodium 134 and creatinine 2.44. His white count is 8.7 and hemoglobin 10. IMPRESSION: Sepsis, on admission, gram-negative, pyelonephritis, urinary tract infection, and [id number]-gc-yioluef kidney disease. We will give him cefepime 1 g q.12. Supportive care. Urology is following. We will modify after the availability of the cultures and sensitivity. IV fluid as ordered. Recheck CBC. Recheck chem panel. We will follow. MD TOSIN Wallace/BLUE /[id number]
[2020-02-25] MEDS: CEFEPIME 1GM/NS 0.9% 50 ML 50 ML IV SCH (15:59)
--- NOTE | 2020-02-25 17:36 | NUR ---
POST VOID RESIDUAL 67 ML
--- NOTE | 2020-02-25 18:38 | Consultation ---
DATE OF CONSULTATION: 02/25/2020 CARDIOLOGY CONSULTATION: REASON FOR CONSULTATION: Abnormal electrocardiogram. HISTORY OF PRESENT ILLNESS: This is a 74-year-old man with a history of hypertension, hyperlipidemia, carotid artery disease, murmur, and diabetes mellitus, who presented to the emergency department with fever and labile blood pressures. He is currently asymptomatic from a cardiovascular standpoint. Denies any chest pain, shortness of breath, or palpitations. The patient denies any recent cardiac workup. He states that he was found to have a murmur at [facility] many years ago. Here, he was noted to have a fever with acute kidney disease with possible pneumonia. We were consulted for abnormal electrocardiogram. REVIEW OF SYSTEMS: A 12-point review of system was conducted, is negative except as stated above in the HPI. PAST MEDICAL HISTORY: As stated above in the HPI. PAST FAMILY HISTORY: Noncontributory to current illness. SOCIAL HISTORY: No illicit drug, alcohol, or tobacco use. PAST SURGICAL HISTORY: None recent. ALLERGIES: AMOXICILLIN AND CLAVULANIC ACID. MEDICATIONS: See medication reconciliation form. PHYSICAL EXAMINATION: VITAL SIGNS: Temperature is 98.1, heart rate 75, respirations 16, blood pressure is 127/52, and oxygen saturation is 98% on room air. GENERAL: Well-appearing, in no apparent distress. Alert and oriented x3. HEAD: Normocephalic and atraumatic. EYES: The extraocular muscles are intact. Conjunctivae clear. NECK: No JVD. No bruits. CARDIOVASCULAR: Regular rate and rhythm. Systolic murmur at the right sternal border. LUNGS: Clear to auscultation. ABDOMEN: Soft, nontender, and nondistended. EXTREMITIES: No clubbing, cyanosis, or edema. VASCULAR: 2+ pulses. SKIN: Warm and dry. NEUROLOGIC: No focal deficits noted. Cranial nerves grossly intact. PSYCHIATRIC: Normal mood and affect. LABORATORY DATA: Reviewed. Hemoglobin 8.4 and platelets 79. Creatinine is 2.44. Troponins negative x2. IMPRESSION: 1. Abnormal electrocardiogram. 2. Anemia. 3. Thrombocytopenia. 4. Chronic kidney disease. 5. Hypertension. 6. Hyperlipidemia. 7. Cardiac murmur. RECOMMENDATIONS: Continue infectious treatment per primary team. We will obtain a 2D echocardiogram to assess murmur. The patient likely will need a stress test, however, this can be done as an outpatient. Resume home cardiac medications. DO JAX Morrison/BLUE /[id number]
--- NOTE | 2020-02-25 19:00 | NUR ---
Received change of shift report from AM nurse. Walking rounds completed.
--- NOTE | 2020-02-25 19:27 | NUR ---
Received change of shift report from AM nurse. Walking rounds completed.
--- NOTE | 2020-02-25 19:54 | NUR ---
Patient in bed in supine position. Denies pain or discomfort at this time. Family at bedside. Continue monitor.
[2020-02-25] MEDS: SIMVASTATIN 20 MG TAB PO SCH (20:09)
--- NOTE | 2020-02-25 21:04 | Progress Note ---
DATE: 02/25/2020 SUBJECTIVE: Basically, the patient was admitted to the hospital and there he has been pertaining to having a blood culture, which revealed gram-negative rods. The patient initially presented with fever and chills for one day. The patient's culture had revealed gram-negative rods. PHYSICAL EXAMINATION: GENERAL: The patient is alert and oriented to person, time, and place. VITAL SIGNS: Stable. Blood pressure 127/52, respirations 18, pulse 77, temperature 98.2. He has been evaluated in the ED. HEENT: Head is normocephalic and atraumatic. NECK: Supple. No JVD. LUNGS: Clear to auscultation. HEART: Regular rate and rhythm. No murmurs or gallops. ABDOMEN: Soft, nontender. EXTREMITIES: No edema. NEUROLOGIC: Nonfocal. CAT scan revealed bilateral lower lobe pneumonia with the infection, diverticulosis and renal lesions. LABORATORY DATA: As far as lab data is concerned as of February 25, 2020. Hemoglobin 8.4, white blood cell count 8.57, platelet count 79,000. There is drop on platelet count 79,000 from 05/08, they need to be followed up. The patient's creatinine has improved down to 2.44, BUN 43, sodium 134, potassium 3.7, chloride 109. Basically, the patient is being followed for sepsis present on admission. 1. Gram-negative . 2. UTI. 3. Acute on chronic kidney disease. PLAN OF CARE: The patient will follow with Urology. Continue present care as he had been advised. Follow up kidney function. MD EDWIN Garcia/BLUE /[id number]
[2020-02-26] VITALS (10 sets, daily range): BP systolic 105–145; BP diastolic 47–61
--- NOTE | 2020-02-26 00:23 | NUR ---
Patient resting quitly at this time. Continue monitor.
[2020-02-26] MEDS: ALBUTEROL/IPRATROPIUM 3 ML NEB NEB SCH ×4 (01:24→19:45)
[2020-02-26] MEDS: CEFEPIME 1GM/NS 0.9% 50 ML 50 ML IV SCH ×2 (02:41→14:07)
[2020-02-26] MEDS: SODIUM CHLORIDE 0.9% 1000ML 1,000 ML IV SCH ×2 (04:13→16:50)
--- NOTE | 2020-02-26 04:55 | NUR ---
No changes noted in patient condition. Did received tylenol for low grade temp 100.2.
[2020-02-26] MEDS: INSULIN LISPRO 100 UNIT/1 ML 3ML VIAL SQ SCH ×4 (07:30→20:25)
[2020-02-26] MEDS: NIFEDIPINE CR 30 MG TAB PO SCH (08:10)
[2020-02-26] MEDS: PANTOPRAZOLE SOD 40 MG TABEC PO SCH (08:10)
[2020-02-26] MEDS: CLOPIDOGREL BISULFATE 75 MG TAB PO SCH (08:10)
[2020-02-26] MEDS: LABETALOL HCL 100 MG TAB PO SCH ×2 (08:11→16:56)
--- NOTE | 2020-02-26 10:13 | NUR ---
car framer visited the pt and family, pt expressed need of prayer , car framer provided pastoral comfort and prayer . Pt appreciated car framer visit chaplain Zoran
--- NOTE | 2020-02-26 18:11 | NUR ---
This is a 74-year-old male, who has history of hypertension, diabetes mellitus, hyperlipidemia, atherosclerotic disease, peripheral vascular disease, carotid stenosis status post endarterectomy, hyperlipidemia, and appendectomy, comes in with fever and chills for one day, not feeling well. The patient comes to the emergency room, where he was admitted and started on antibiotic. His blood cultures are showing gram-negative rods
--- NOTE | 2020-02-26 19:04 | Progress Note ---
DATE: 02/26/2020 SUBJECTIVE: The patient is feeling better. Denies any chest pain or shortness of breath. OBJECTIVE: VITAL SIGNS: Temperature is 98, heart rate 87, respirations 20, blood pressure is 129/53, and oxygen saturation 96% on room air. GENERAL: Well appearing, in no apparent distress. CARDIOVASCULAR: Regular rate and rhythm with a systolic murmur at the right sternal border. LUNGS: Clear to auscultation. ABDOMEN: Soft, nontender, nondistended. EXTREMITIES: No clubbing, cyanosis, or edema. LABORATORY DATA: None reviewed today other than a glucose of 113. Telemetry monitoring today shows normal sinus rhythm. Echocardiogram showed preserved ventricular systolic function with aortic sclerosis without significant stenosis. IMPRESSION: 1. Abnormal electrocardiogram. 2. Anemia. 3. Thrombocytopenia. 4. Chronic kidney disease. 5. Hypertension. 6. Hyperlipidemia. 7. Aortic sclerosis. 8. Urinary tract infection. RECOMMENDATIONS: Continue infectious treatment per primary team. His echocardiogram showed preserved left ventricular systolic function with aortic sclerosis without significant stenosis. He is asymptomatic from a cardiovascular standpoint. Resume home cardiovascular medications. The patient may be discharged from a cardiovascular standpoint with outpatient followup for stress test. DO JAX Morrison/CANL /[id number]
--- NOTE | 2020-02-26 19:24 | NUR ---
Received change of shift report from AM nurse. Walking rounds completed.
--- NOTE | 2020-02-26 19:25 | NUR ---
Patient in bed. Denies pain or discomfort at this time. Patient did his own dressing change. Continue monitor.
--- NOTE | 2020-02-26 19:29 | Progress Note ---
DATE: 02/26/2020 SUBJECTIVE: Mr. Quinn is doing better. There is no new complaint. The patient is a 74-year-old, who has history of diabetes mellitus, hyperlipidemia, comes in with the above complaint, not feeling well. His blood cultures are showing gram negative rods. The patient is feeling better today. PAST MEDICAL HISTORY: As above. PAST SURGICAL HISTORY: As above. He grew E coli, which is pretty pansensitive. CURRENT MEDICATIONS: He is currently on cefepime. PHYSICAL EXAMINATION: GENERAL: Currently alert, oriented. VITAL SIGNS: Stable, currently afebrile. HEENT: He is not icteric. NECK: Supple. CHEST: Clear. HEART: S1 and S2. ABDOMEN: Soft. IMPRESSION: Sepsis on admission, chronic kidney disease. Can change to oral Cipro 250 mg p.o. b.i.d. to finish 5 days. Once he is clinically stable, we will order blood cultures to make sure the bacteremia has resolved. Supportive care. Recheck CBC and recheck chemistry panel. We will follow with you. MD TOSIN Wallace/BLUE /[id number]
[2020-02-26] MEDS: SIMVASTATIN 20 MG TAB PO SCH (20:06)
--- NOTE | 2020-02-26 22:30 | NUR ---
Progress note dictated [id number]
--- NOTE | 2020-02-26 23:35 | NUR ---
Patient was sweating. BS check shows 38 with no signs or symptoms noted. Patient given juice x2. Will recheck results.
--- NOTE | 2020-02-26 23:43 | NUR ---
Patient blood glucose at 86 after rechecking. Patient given a sandwich.
[2020-02-27] VITALS (10 sets, daily range): BP systolic 147–164; BP diastolic 55–71
--- NOTE | 2020-02-27 00:06 | Progress Note ---
DATE: 02/26/2020 SUBJECTIVE: The patient was doing fine. At the time of my evaluation, the patient is feeling better and I spoke with the patient's , who was at the bedside. Presently, the patient is being followed up by ID, Dr. Hyatt and being treated for sepsis, which was present on admission. The patient has been in no distress. The patient has had no fever, no chills. No abdominal pain. No nausea or vomiting. Antibiotics as per ID. OBJECTIVE: GENERAL: The patient has been alert and oriented to person, time and place. The patient in no distress. VITAL SIGNS: Blood pressure 141/61, respirations 18, pulse is 80, temperature 98.2. Physical examination is essentially unchanged. HEENT: Head is atraumatic. NECK: Supple. No JVD. LUNGS: Clear to auscultation. HEART: Regular rate and rhythm. ABDOMEN: Soft, nontender. EXTREMITIES: No edema. NEURO: Nonfocal. LABORATORY DATA: As of February 25, 2020, hemoglobin 8.4, white blood cell count 8.57, platelet count 79,000, which is low and Chem profile as of February 25, 2020, revealed sodium 124, potassium 3.7, chloride 109, CO2 19, BUN 43, creatinine is 2.44. Creatinine on admission was down to 3.20. ASSESSMENT: 1. The patient was admitted with an impression of bibasilar pneumonia. 2. Fever. 3. Sepsis. 4. Chronic kidney disease. 5. Hypertension and thrombocytopenia. 6. Hyperlipidemia. 7. Aortic sclerosis. 8. Urinary tract infection. PLAN OF CARE: Continue antibiotics per ID. The patient . We will continue to start treatment and follow up with labs in a.m. The patient be seen by Cardiology. Echo did reveal pressure left ventricular systolic function with aortic sclerosis without significant stenosis. Stable from cardiac standpoint. Stress test has been advised on an outpatient basis. Based on the lab data, the patient was noted to have E. coli on blood culture. Evidently, the patient was septic. Antibiotics as per ID. Follow up labs in the morning. Follow up platelet count. MD EDWIN Garcia/BLUE /[id number]
[2020-02-27] MEDS: ALBUTEROL/IPRATROPIUM 3 ML NEB NEB SCH ×4 (01:20→20:15)
[2020-02-27] MEDS: CEFEPIME 1GM/NS 0.9% 50 ML 50 ML IV SCH ×2 (02:40→15:04)
[2020-02-27] MEDS: SODIUM CHLORIDE 0.9% 1000ML 1,000 ML IV SCH ×3 (03:00→23:05)
--- NOTE | 2020-02-27 04:27 | NUR ---
Patient resting quitly at this time. Continue monitor.
[2020-02-27 06:36] LABS: BASOPHILS % 0.3 % (0.0-1.0); EOSINOPHILS # (AUTO) 0.1 (0.0-0.4); EOSINOPHILS % 1.8 % (0.0-6.0); HEMATOCRIT 28.6 % (38.2-49.6); HEMOGLOBIN 9.4 g/dL (14.0-18.0); LYMPHOCYTES # (AUTO) 0.9 (1.0-3.2); MEAN CORPUSCULAR HEMOGLOBIN 30.4 pg (28-32); MEAN CORPUSCULAR HGB CONC 32.9 g/dL (31-35); MEAN CORPUSCULAR VOLUME 92.6 fL (81-99); MONOCYTES # (AUTO) 0.8 (0.2-0.8); MONOCYTES % 12.4 % (4.4-11.3); NEUTROPHILS # (AUTO) 4.7 (2.1-6.9); NEUTROPHILS % 71.9 % (38.7-80.0); PLATELET COUNT 131 x10e3/uL (140-360); RED BLOOD COUNT 3.09 x10e6/uL (4.3-5.7); RED CELL DISTRIBUTION WIDTH 13.3 % (11.7-14.4)
[2020-02-27 06:57] LABS: ANION GAP 10.7 mmol/L (8-16); CREATININE, SERUM 1.85 mg/dL (0.72-1.25); POTASSIUM 3.7 mmol/L (3.5-5.1)
[2020-02-27] MEDS: INSULIN LISPRO 100 UNIT/1 ML 3ML VIAL SQ SCH ×4 (07:30→21:00)
[2020-02-27] MEDS: PANTOPRAZOLE SOD 40 MG TABEC PO SCH (08:24)
[2020-02-27] MEDS: NIFEDIPINE CR 30 MG TAB PO SCH (08:24)
[2020-02-27] MEDS: LABETALOL HCL 100 MG TAB PO SCH ×2 (08:27→17:18)
[2020-02-27] MEDS: CLOPIDOGREL BISULFATE 75 MG TAB PO SCH (08:27)
--- NOTE | 2020-02-27 18:28 | Progress Note ---
DATE: 02/27/2020 SUBJECTIVE: Mr. Quinn is doing well. There are no new complaints. REVIEW OF SYSTEMS: HEENT: Negative. PULMONARY: Negative. CARDIAC: Negative. PHYSICAL EXAMINATION: GENERAL: He is currently alert and oriented. VITAL SIGNS: Stable, currently afebrile. HEENT: He is not icteric. NECK: Supple. CHEST: Clear. HEART: S1 and S2. ABDOMEN: Soft. Bowel sounds present. EXTREMITIES: No edema. SKIN: No rash. LABORATORY DATA: Reviewed. Chart reviewed. IMPRESSION: Sepsis on admission, urinary tract infection with Escherichia coli, which was pansensitive. Can discharge home with Cipro 250 mg p.o. b.i.d. for 2 weeks. Chronic kidney disease, diabetes mellitus. Stable from Infectious Disease point of view. MD TOSIN Wallace/BLUE /[id number]
--- NOTE | 2020-02-27 18:48 | Progress Note ---
DATE: 02/27/2020 Cardiology Progress Note SUBJECTIVE: The patient denies chest pain or shortness of breath. OBJECTIVE: VITAL SIGNS: Temperature 98.1 degrees, pulse 77, respiratory rate 19 blood pressure 157/66, oxygen saturation 99%. GENERAL: Awake, alert, in no acute distress. LUNGS: Clear to auscultation bilaterally. No wheezes or crackles. CARDIOVASCULAR: Normal rate, regular rhythm. Systolic murmur at the right sternal border. ABDOMEN: Soft, nontender. EXTREMITIES: No edema. CARDIAC MEDICATIONS: On Plavix 75 mg p.o. daily, nifedipine 30 mg p.o. daily, simvastatin 20 mg p.o. at bedtime, labetalol 50 mg p.o. b.i.d. LABORATORY DATA: WBC 6.55, hemoglobin 9.4, hematocrit 28.6, platelets 131. Sodium 134, potassium 3.7, chloride 107, CO2 of 20, BUN 26, creatinine 1.85. TELEMETRY: Personally reviewed and interpreted revealing normal sinus rhythm. IMPRESSION: 1. Escherichia coli bacteremia and urinary tract infection. 2. Sepsis secondary to above. 3. Abnormal EKG. 4. Hypertension. 5. Hyperlipidemia. 6. Aortic sclerosis without significant stenosis. 7. Chronic kidney disease. 8. Anemia and thrombocytopenia. RECOMMENDATIONS: Antibiotics per Infectious Disease. Echocardiogram demonstrated normal LV systolic function with aortic stenosis without significant stenosis. He is asymptomatic from a cardiac standpoint. Continue home cardiac medications. No further cardiac evaluation is indicated at this time. I would recommend he follow up as an outpatient for nuclear stress testing once he has recovered from his illness. Thank you for this consult. We will continue to follow. Aziza Rojas MD ABS/MODL /[id number]
--- NOTE | 2020-02-27 19:10 | NUR ---
Patient visited in room during nursing rounds. Patient alert and oriented x3. Pt is uruguayan speaking only. Ambulatory in room prn. No distress or discomfort noted. at bedside visiting. On IVF (NS at 100ml/hr). Call jackson within reach.
[2020-02-27] MEDS: SIMVASTATIN 20 MG TAB PO SCH (21:50)
[2020-02-28] VITALS (9 sets, daily range): BP systolic 139–181; BP diastolic 58–70
--- NOTE | 2020-02-28 00:45 | NUR ---
Attempted to call Dr. Snider via answering service to possibly obtain prn for hypertension. Patient's current BP is 172/63. Awaiting on MD call back
--- NOTE | 2020-02-28 00:54 | NUR ---
Received phone call from Dr. Snider and informed of patient's elevated BP (172/63). MD aware and ordered Hydralazine 10mg IV Q6hr prn (for SBP > 160).
[2020-02-28] MEDS: HYDRALAZINE HCL 20 MG/ML VIAL IV PRN ×2 (01:09→21:03)
[2020-02-28] MEDS: ALBUTEROL/IPRATROPIUM 3 ML NEB NEB SCH ×4 (01:55→19:25)
--- NOTE | 2020-02-28 02:14 | Progress Note ---
DATE: 02/27/2020 SUBJECTIVE: The patient was doing fine at the time of evaluation. The patient denies any complaints. No fever. No chills. No abdominal pain. No nausea or vomiting. No chest pain or shortness of breath. OBJECTIVE: GENERAL: The patient has been alert; oriented to person, time, and place. The patient is in no distress. VITAL SIGNS: Blood pressure 164/71, respirations 18, pulse 98, temperature 98.1. HEENT: Head is normocephalic and atraumatic. NECK: Supple. No JVD. LUNGS: Clear to auscultation bilaterally. HEART: Regular rate and rhythm. ABDOMEN: Soft, nontender. EXTREMITIES: No edema. NEURO: Nonfocal. CURRENT MEDICATIONS: Include: 1. Cefepime 1 g IV q.12 hours. 2. The patient is on normal saline of 100 mL an hour. 3. Acetaminophen. 4. DuoNeb nebulized treatment. 5. Tessalon Perles. 6. Plavix. 7. Humalog sliding scale. 8. Nifedipine. 9. Procardia XL 30 mg p.o. daily. 10. Labetalol 50 mg p.o. b.i.d. 11. Protonix 40 mg p.o. daily. 12. Zocor 20 mg p.o. at bedtime. 13. bedtime as per protocol. 14. Plavix 75 mg p.o. daily. 15. Tessalon Perles 100 mg p.o. q.6 hours p.r.n. basis. LABORATORY DATA: CBC disclosed. Hemoglobin 9.4, white blood cell count 6.55, platelet count 131,000. Chem profile revealed improving kidney function. Creatinine 1.85, BUN 26. Sodium 134, potassium 3.7, chloride 107, CO2 of 28. ASSESSMENT: 1. Sepsis, secondary to Escherichia coli. 2. Urinary tract infection. 3. Acute on chronic renal failure. 4. Thrombocytopenia, improved. 5. Hypertension, controlled. 6. Aortic stenosis. IMAGING STUDIES: As of February 23, 2020 revealed mild patchy density in the right lung base. There was a concern about underlying pneumonia. However, everything points out that the primary issue was that of an E. coli sepsis. The patient did have positive blood cultures. Urinalysis did reveal white blood cell count 0 to 5 per high-power field, urine bacteria. The patient's clinical picture points out to possible pneumonia as well. Continue present care. Continue to monitor kidney function. We will proceed to do labs in the morning today. The patient there still needs to remain in the hospital in view of kidney function, which has improved. MD EDWIN Garcia/BLUE /[id number]
[2020-02-28] MEDS: CEFEPIME 1GM/NS 0.9% 50 ML 50 ML IV SCH ×2 (03:18→14:03)
[2020-02-28 06:36] LABS: BASOPHILS % 0.5 % (0.0-1.0); EOSINOPHILS # (AUTO) 0.2 (0.0-0.4); EOSINOPHILS % 3.9 % (0.0-6.0); HEMATOCRIT 27.3 % (38.2-49.6); HEMOGLOBIN 9.1 g/dL (14.0-18.0); LYMPHOCYTES # (AUTO) 0.8 (1.0-3.2); LYMPHOCYTES % 13.7 % (18.0-39.1); MEAN CORPUSCULAR HEMOGLOBIN 30.4 pg (28-32); MEAN CORPUSCULAR HGB CONC 33.3 g/dL (31-35); MEAN CORPUSCULAR VOLUME 91.3 fL (81-99); MONOCYTES % 17.4 % (4.4-11.3); NEUTROPHILS # (AUTO) 3.8 (2.1-6.9); NEUTROPHILS % 63.8 % (38.7-80.0); PLATELET COUNT 166 x10e3/uL (140-360); RED BLOOD COUNT 2.99 x10e6/uL (4.3-5.7); RED CELL DISTRIBUTION WIDTH 13.4 % (11.7-14.4)
[2020-02-28 06:53] LABS: ANION GAP 11.5 mmol/L (8-16); CREATININE, SERUM 2.02 mg/dL (0.72-1.25); POTASSIUM 3.5 mmol/L (3.5-5.1)
[2020-02-28] MEDS: INSULIN LISPRO 100 UNIT/1 ML 3ML VIAL SQ SCH ×4 (07:30→20:19)
--- NOTE | 2020-02-28 07:30 | NUR ---
PATIENT IS AWAKE, ALERT, AND IN STABLE CONDITION WITH NO S/S OF RESPIRATORY DISTRESS. PATIENT DENIES PAIN. TELEMETRY APPLIED. IV FLUIDS INFUSING. WALKER AVAILABLE NEAR PATIENT'S BED. CALL LIGHT IS WITHIN REACH, PATIENT INSTRUCTED TO CALL FOR ASSISTANCE NEEDED.
[2020-02-28] MEDS: PANTOPRAZOLE SOD 40 MG TABEC PO SCH (08:24)
[2020-02-28] MEDS: CLOPIDOGREL BISULFATE 75 MG TAB PO SCH (08:24)
[2020-02-28] MEDS: NIFEDIPINE CR 30 MG TAB PO SCH (08:24)
[2020-02-28] MEDS: LABETALOL HCL 100 MG TAB PO SCH ×2 (08:25→16:25)
[2020-02-28] MEDS: SODIUM CHLORIDE 0.9% 1000ML 1,000 ML IV SCH (11:40)
--- NOTE | 2020-02-28 18:18 | Progress Note ---
DATE: 02/28/2020 Cardiology Progress Note SUBJECTIVE: The patient denies chest pain or shortness of breath. OBJECTIVE: VITAL SIGNS: Temperature 98.4 degrees, pulse 85, respiratory rate 19, blood pressure 154/58, and oxygen saturation 99% on room air. GENERAL: Awake, alert, in no acute distress. LUNGS: Clear to auscultation bilaterally. No wheezes or crackles. CARDIOVASCULAR: Normal rate. Regular rhythm. Systolic murmur at the right sternal border. ABDOMEN: Soft, nontender. EXTREMITIES: No edema. CARDIAC MEDICATIONS: Labetalol 50 mg p.o. b.i.d., nifedipine 30 mg p.o. daily, Plavix 75 mg p.o. daily, and simvastatin 20 mg p.o. at bedtime. LABORATORY DATA: WBC 5.97, hemoglobin 9.1, hematocrit 37.3, and platelets 166. Sodium 136, potassium 3.5, chloride 110, CO2 of 18, BUN 26, and creatinine 2.02. TELEMETRY: Telemetry was personally reviewed and interpreted, revealing normal sinus rhythm. IMPRESSION: 1. Escherichia coli bacteremia and urinary tract infection. 2. Sepsis secondary to above. 3. Abnormal EKG. 4. Hypertension. 5. Hyperlipidemia. 6. Aortic sclerosis without significant stenosis. 7. Chronic kidney disease. 8. Anemia and thrombocytopenia. RECOMMENDATIONS: Antibiotics per Infectious Disease. Echocardiogram demonstrated normal LV systolic function with aortic sclerosis without significant stenosis. He is asymptomatic from a cardiac standpoint. Continue current cardiac medications. Blood pressure is elevated. We will increase nifedipine. Continue current cardiac medications otherwise. No further cardiac evaluation is indicated at this time. Recommend he follow up as an outpatient for nuclear stress testing once he has recovered from his current illness. Thank you for this consult. We will continue to follow. Aziza Rojas MD ABS/MODL /[id number]
--- NOTE | 2020-02-28 19:10 | NUR ---
PATIENT IS IN STABLE CONDITION WITH NO S/S OF RESPIRATORY DISTRESS. NO PAIN VOICED. TELEMETRY APPLIED. PRESENT IN THE ROOM. CALL LIGHT IS WITHIN REACH, PATIENT INSTRUCTED TO CALL FOR ASSISTANCE NEEDED. BEDSIDE SHIFT REPORT GIVEN TO ONCOMING NURSE.
--- NOTE | 2020-02-28 19:10 | NUR ---
Patient visited in room during nursing rounds. Patient alert and oriented x3. Pt is yakut speaking only. Ambulatory in room prn. No distress or discomfort noted. at bedside visiting. Call jackson within reach.
[2020-02-28] MEDS: SIMVASTATIN 20 MG TAB PO SCH (21:03)
[2020-02-29] MEDS: ALBUTEROL/IPRATROPIUM 3 ML NEB NEB SCH ×4 (01:10→13:00)
--- NOTE | 2020-02-29 01:28 | Progress Note ---
DATE: 02/28/2020 SUBJECTIVE: The patient was doing fine at the time of evaluation. The patient was in no distress, resting comfortable. OBJECTIVE: GENERAL: The patient has been alert, oriented to person, time, and place. VITAL SIGNS: Blood pressure 165/62, respirations 18, pulse is 80, temperature 98.5. Saturation is essentially unchanged there. ASSESSMENT AND PLAN: Continue present care as advised. List of medications were noted. Cardiology evaluation appreciated. MD EDWIN Garcia/BLUE /[id number]
[2020-02-29] MEDS: CEFEPIME 1GM/NS 0.9% 50 ML 50 ML IV SCH ×2 (03:50→13:18)
[2020-02-29 04:00] VITALS: BP 154/59
[2020-02-29] MEDS: INSULIN LISPRO 100 UNIT/1 ML 3ML VIAL SQ SCH ×2 (07:30→11:30)
[2020-02-29 08:30] VITALS: BP 168/74
[2020-02-29 08:58] VITALS: BP 154/59
[2020-02-29] MEDS ORDERED: NIFEDIPINE CR 30 MG TAB PO SCH (09:00)
[2020-02-29] MEDS: CLOPIDOGREL BISULFATE 75 MG TAB PO SCH (09:04)
[2020-02-29] MEDS: PANTOPRAZOLE SOD 40 MG TABEC PO SCH (09:06)
[2020-02-29] MEDS: LABETALOL HCL 100 MG TAB PO SCH (09:07)
[2020-02-29 09:35] VITALS: BP 154/59
[2020-02-29 09:41] VITALS: BP 154/59
[2020-02-29] MEDS ORDERED: CIPRO500 MG PO (11:55)
--- NOTE | 2020-02-29 13:02 | Progress Note ---
DATE: 02/29/2020 SUBJECTIVE: Mr. Quinn is doing well. There are no new complaints. REVIEW OF SYSTEMS: Unremarkable. PHYSICAL EXAMINATION: GENERAL: He is currently alert and oriented. Does not seem to be in acute distress. VITAL SIGNS: Stable, currently afebrile. HEENT: He is not pale, not icteric. NECK: Supple. CHEST: Clear. HEART: S1 and S2. ABDOMEN: Soft. Bowel sounds present. EXTREMITIES: No edema. SKIN: No rash. IMPRESSION: Sepsis on admission, Escherichia coli, which is pansensitive, bacteremia, and chronic kidney disease. The patient will be discharged home with Cipro 250 mg p.o. b.i.d. for 2 weeks. Follow up as outpatient. MD TOSIN Wallace/BLUE /[id number]
--- NOTE | 2020-02-29 13:09 | NUR ---
EDUCATED ABOUT IMM, SIGNED, FILED IN CHART, WITH COPY LEFT WITH FAMILY AT BEDSIDE.
[2020-02-29 13:27] VITALS: BP 169/65
== END 2020-02-29 14:00 | disposition home or self-care (01) | DRG 871 ==
LOC: ER 18:39 → ERHOLD 02-24 00:57 → MED/SURG3 02-24 02:18
PROVIDERS: ADMIT Internal Medicine; ATTEND Internal Medicine
DX: A41.51 Sepsis due to Escherichia coli [E. coli] (principal); J15.9 Unspecified bacterial pneumonia; N17.0 Acute kidney failure with tubular necrosis; N39.0 Urinary tract infection, site not specified; N12 Tubulo-interstitial nephritis, not specified as acute or chronic; E87.1 Hypo-osmolality and hyponatremia; B96.89 Other specified bacterial agents as the cause of diseases classified elsewhere; D64.9 Anemia, unspecified; R35.1 Nocturia; D69.6 Thrombocytopenia, unspecified; E78.5 Hyperlipidemia, unspecified; I70.0 Atherosclerosis of aorta; N40.1 Benign prostatic hyperplasia with lower urinary tract symptoms; R59.1 Generalized enlarged lymph nodes; Z20.828 Contact with and (suspected) exposure to other viral communicable diseases
CPT/HCPCS: 36415; 71045; 74176; 80048; 80053; 81001; 82550; 82553; 82948; 83605; 83690; 84484; 85025; 87040; 87071; 87086; 87186; 87205; 93005; 93306; 94640; 99284; J0360; J0456; J0692; J0696; J7030; J7050; U0002

== ENCOUNTER 2021-01-31 08:29 | Inpatient (IN) | payer MEDICARE, OTHER ==
[2021-01-31] VITALS (8 sets, daily range): BP systolic 109–129; BP diastolic 51–59
[~2021-01-31] VITALS: Ht 154.9 cm; Wt 66.2 kg
[~2021-01-31 08:29] MED LIST changes: +CIPRO500 MG PO; +CRESTOR10 MG PO; +GLIMEPIRIDE2 MG PO; +PROTONIX20 MG PO
[2021-01-31] MEDS ORDERED: ONDANSETRON HCL INJ 2MG/ML 2ML 2 MG/ML VIAL IV STA (08:35)
[2021-01-31] MEDS ORDERED: SODIUM CHLORIDE 0.9% 1000ML 1,000 ML IV SCH ×2 (08:45→09:30)
[2021-01-31] MEDS ORDERED: Morphine 4mg Syringe 4 MG/ML INJ IV PRN (08:45)
[2021-01-31 09:01] LABS: BASOPHILS # (AUTO) 0.1 (0.0-0.1); BASOPHILS % 0.2 % (0.0-1.0); HEMATOCRIT 36.6 % (38.2-49.6); HEMOGLOBIN 11.9 g/dL (14.0-18.0); LYMPHOCYTES # (AUTO) 0.6 (1.0-3.2); LYMPHOCYTES % 2.2 % (18.0-39.1); MEAN CORPUSCULAR HEMOGLOBIN 31.2 pg (28-32); MEAN CORPUSCULAR HGB CONC 32.5 g/dL (31-35); MEAN CORPUSCULAR VOLUME 96.1 fL (81-99); MONOCYTES # (AUTO) 0.8 (0.2-0.8); NEUTROPHILS # (AUTO) 26.2 (2.1-6.9); NEUTROPHILS % 93.7 % (38.7-80.0); PLATELET COUNT 308 x10e3/uL (140-360); RED BLOOD COUNT 3.81 x10e6/uL (4.3-5.7)
[2021-01-31] MEDS ORDERED: Vancomycin IV 1 GM in SODIUM CHLORIDE 0.9% 250ML 250 ML IV STA (09:22)
[2021-01-31] MEDS ORDERED: PIPERACILLIN/TAZOBACTAM 4.5 GM in SODIUM CHLORIDE 0.9% 100 ML IV STA (09:22)
[2021-01-31 09:26] LABS: ALBUMIN 3.3 g/dL (3.5-5.0); ALBUMIN/GLOBULIN RATIO 0.8 (0.8-2.0); ANION GAP 19.3 mmol/L (8-16); CALCIUM 9.5 mg/dL (8.4-10.2); CREATININE, SERUM 2.64 mg/dL (0.72-1.25); POTASSIUM 5.3 mmol/L (3.5-5.1)
[2021-01-31] MEDS ORDERED: DIATRIZOATE MEGL/DIATRIZOA SOD 30 ML BTL PO ONE (09:32)
[2021-01-31] MEDS ORDERED: CEFEPIME 2 GM in SODIUM CHLORIDE 0.9% 100 ML IV ONE (10:00)
[2021-01-31] MEDS ORDERED: CEFEPIME 2 GM VIAL ONE (10:11)
[2021-01-31] MEDS ORDERED: SODIUM CHLORIDE 0.9% 100 ML ONE (10:11)
[2021-01-31] MEDS ORDERED: ACETAMINOPHEN 325 MG TAB PO PRN (10:15)
[2021-01-31 10:21] LABS: BAND NEUTROPHILS % (MANUAL) 7 %; LYMPHOCYTES % (MANUAL) 4 % (19-48); MONOCYTES % (MANUAL) 4 % (3.4-9.0); NEUTROPHILS % (MANUAL) 85 % (40-74); PLATELET ESTIMATE ADEQUATE; PLATELET MORPHOLOGY COMMENT NORMAL; RBC MORPHOLOGY COMMENT NORMAL
[2021-01-31 11:51] LABS: CLARITY,URINE CLEAR (CLEAR); COLOR,URINE YELLOW (YELLOW); KETONES,URINE NEGATIVE (NEGATIVE); LEUKOCYTE ESTERASE ,URINE NEGATIVE (NEGATIVE); NITRITE,URINE NEGATIVE (NEGATIVE); PROTEIN,URINE DIPSTICK >=300 (NEGATIVE); URINE UROBILINOGEN 0.2 mg/dL (0.2 - 1)
[2021-01-31] MEDS ORDERED: METRONIDAZOLE 500MG/NS 100ML 100 ML IV SCH (12:00)
[2021-01-31 12:16] LABS: BACTERIA,URINE RARE /HPF; RBC,URINE 21-50 /HPF (0-5)
[2021-01-31 12:17] LABS: MUCUS,URINE FEW (RARE)
[2021-01-31] MEDS ORDERED: DEXTROSE 5%/0.45% SOD CHL 1,000 ML IV SCH (14:00)
[2021-01-31] MEDS ORDERED: IOPAMIDOL 300MG/ML 50ML INFUS..BTL IV ONE (14:02)
[2021-01-31] MEDS ORDERED: INDOMETHACIN 50 MG SUPP.RECT RC ONE (14:02)
[2021-01-31] MEDS ORDERED: DEXTROSE 50% SYRINGE 50 ML IV ONE (14:21)
[2021-01-31] MEDS ORDERED: FENTANYL CITRATE/PF 100MCG/2 ML INJ ONE (16:23)
[2021-01-31] MEDS ORDERED: SODIUM CHLORIDE 0.9% IV ONE (21:15)
[2021-01-31] MEDS ORDERED: HYDRALAZINE HCL 20 MG/ML VIAL IV PRN (21:30)
[2021-01-31] MEDS ORDERED: ONDANSETRON HCL INJ 2MG/ML 2ML 2 MG/ML VIAL IV PRN (21:30)
[2021-01-31] MEDS ORDERED: DEXTROSE 50% SYRINGE 50 ML IV PRN (21:30)
[2021-02-01] VITALS (8 sets, daily range): BP systolic 122–172; BP diastolic 56–69
[2021-02-01 05:50] LABS: ALBUMIN 2.2 g/dL (3.5-5.0); ALBUMIN/GLOBULIN RATIO 0.8 (0.8-2.0); ANION GAP 11.2 mmol/L (8-16); CALCIUM 7.5 mg/dL (8.4-10.2); CREATININE, SERUM 2.71 mg/dL (0.72-1.25); POTASSIUM 5.2 mmol/L (3.5-5.1)
[2021-02-01] MEDS: INSULIN LISPRO 100 UNIT/1 ML 3ML VIAL SQ SCH ×4 (07:30→20:52)
[2021-02-01] MEDS ORDERED: SODIUM CHLORIDE 0.9% 250ML 250 ML ONE (08:59)
[2021-02-01] MEDS ORDERED: CEFEPIME 1 GM in SODIUM CHLORIDE 0.9% 50ML 50 ML IV SCH (09:00)
[2021-02-01 10:18] LABS: BASOPHILS # (AUTO) 0.1 (0.0-0.1); BASOPHILS % 0.2 % (0.0-1.0); EOSINOPHILS # (AUTO) 0.1 (0.0-0.4); EOSINOPHILS % 0.3 % (0.0-6.0); HEMOGLOBIN 8.9 g/dL (14.0-18.0); LYMPHOCYTES # (AUTO) 1.3 (1.0-3.2); LYMPHOCYTES % 3.9 % (18.0-39.1); MEAN CORPUSCULAR HEMOGLOBIN 31.3 pg (28-32); MEAN CORPUSCULAR HGB CONC 31.8 g/dL (31-35); MEAN CORPUSCULAR VOLUME 98.6 fL (81-99); MONOCYTES % 3.2 % (4.4-11.3); NEUTROPHILS # (AUTO) 28.5 (2.1-6.9); PLATELET COUNT 155 x10e3/uL (140-360); RED BLOOD COUNT 2.84 x10e6/uL (4.3-5.7); RED CELL DISTRIBUTION WIDTH 14.4 % (11.7-14.4)
[2021-02-01 11:22] LABS: BAND NEUTROPHILS % (MANUAL) 3 %; LYMPHOCYTES % (MANUAL) 2 % (19-48); MONOCYTES % (MANUAL) 6 % (3.4-9.0); NEUTROPHILS % (MANUAL) 89 % (40-74); PLATELET ESTIMATE ADEQUATE; PLATELET MORPHOLOGY COMMENT NORMAL
[2021-02-01 11:23] LABS: RBC MORPHOLOGY COMMENT NORMAL
[2021-02-01] MEDS: DEXTROSE 5%/0.45% SOD CHL 1,000 ML IV SCH (11:27)
[2021-02-01] MEDS: PANTOPRAZOLE SOD 40 MG TABEC PO SCH (11:40)
[2021-02-01 11:57] LABS: INR 1.25; PROTHROMBIN TIME 16.2 seconds (11.9-14.5)
[2021-02-01] MEDS ORDERED: SOD POLYSTYRENE SULFONATE SUSP 15 GM/60 ML BTL PO ONE (12:00)
[2021-02-01] MEDS ORDERED: LACTULOSE SYRUP 20 GM/30 ML UDC PO ONE (12:00)
[2021-02-01] MEDS: LABETALOL HCL 100 MG TAB PO SCH (16:40)
[2021-02-01] MEDS: MEROPENEM 500 MG in SODIUM CHLORIDE 0.9% 50ML 50 ML IV SCH (16:40)
[2021-02-01] MEDS: METOPROLOL SUCCINATE 25 MG TAB XL PO SCH (20:51)
[2021-02-01] MEDS: TAMSULOSIN HCL 0.4 MG CAP PO SCH (20:52)
[2021-02-01] MEDS: SIMVASTATIN 20 MG TAB PO SCH (20:52)
[2021-02-02] VITALS (8 sets, daily range): BP systolic 128–211; BP diastolic 53–79
[2021-02-02] MEDS: METRONIDAZOLE 500MG/NS 100ML 100 ML IV SCH ×3 (01:10→11:57)
[2021-02-02 01:29] LABS: % IRON SATURATION 3 % (15-50); IRON 6 ug/dL (65-175); TOTAL IRON BINDING CAPACITY 214 ug/dL (261-478); TRANSFERRIN 153 mg/dL (174-364)
[2021-02-02] MEDS: DEXTROSE 5%/0.45% SOD CHL 1,000 ML IV SCH (03:51)
[2021-02-02] MEDS: MEROPENEM 500 MG in SODIUM CHLORIDE 0.9% 50ML 50 ML IV SCH (03:51)
[2021-02-02] MEDS: GLIMEPIRIDE 2 MG TAB PO SCH (05:05)
[2021-02-02] MEDS: PANTOPRAZOLE SOD 40 MG TABEC PO SCH (05:05)
[2021-02-02 06:00] LABS: BASOPHILS # (AUTO) 0.1 (0.0-0.1); BASOPHILS % 0.3 % (0.0-1.0); EOSINOPHILS # (AUTO) 0.2 (0.0-0.4); HEMATOCRIT 29.1 % (38.2-49.6); HEMOGLOBIN 9.4 g/dL (14.0-18.0); LYMPHOCYTES # (AUTO) 1.1 (1.0-3.2); LYMPHOCYTES % 5.2 % (18.0-39.1); MEAN CORPUSCULAR HEMOGLOBIN 30.9 pg (28-32); MEAN CORPUSCULAR HGB CONC 32.3 g/dL (31-35); MEAN CORPUSCULAR VOLUME 95.7 fL (81-99); MONOCYTES # (AUTO) 0.7 (0.2-0.8); MONOCYTES % 3.1 % (4.4-11.3); NEUTROPHILS # (AUTO) 18.8 (2.1-6.9); NEUTROPHILS % 88.2 % (38.7-80.0); PLATELET COUNT 147 x10e3/uL (140-360); RED BLOOD COUNT 3.04 x10e6/uL (4.3-5.7); RED CELL DISTRIBUTION WIDTH 14.2 % (11.7-14.4)
[2021-02-02 06:20] LABS: ALBUMIN 2.4 g/dL (3.5-5.0); ALBUMIN/GLOBULIN RATIO 0.7 (0.8-2.0); CALCIUM 8.3 mg/dL (8.4-10.2); CREATININE, SERUM 2.69 mg/dL (0.72-1.25)
[2021-02-02] MEDS: INSULIN LISPRO 100 UNIT/1 ML 3ML VIAL SQ SCH ×4 (07:30→20:23)
[2021-02-02] MEDS: CLOPIDOGREL BISULFATE 75 MG TAB PO SCH (08:46)
[2021-02-02] MEDS: LABETALOL HCL 100 MG TAB PO SCH ×2 (08:47→20:24)
[2021-02-02] MEDS: METOPROLOL SUCCINATE 25 MG TAB XL PO SCH (08:47)
[2021-02-02] MEDS ORDERED: NIFEDIPINE CR 30 MG TAB PO SCH (09:00)
[2021-02-02] MEDS ORDERED: HYDRALAZINE HCL 20 MG/ML VIAL IV PRN (10:30)
[2021-02-02] MEDS ORDERED: NIFEDIPINE CR 30 MG TAB PO ONE (11:30)
[2021-02-02] MEDS ORDERED: CYANOCOBALAMIN INJ 1,000 MCG/ML VIAL IM ONE (13:15)
[2021-02-02] MEDS ORDERED: FOLIC ACID 1 MG TAB PO ONE (13:15)
[2021-02-02] MEDS: IRON SUCROSE 100 MG in SODIUM CHLORIDE 0.9% 100 ML 100 ML IV SCH (14:49)
[2021-02-02] MEDS: CEFTRIAXONE 1 GM in SODIUM CHLORIDE 0.9% 50ML 50 ML IV SCH (16:24)
[2021-02-02] MEDS: SIMVASTATIN 20 MG TAB PO SCH (20:23)
[2021-02-02] MEDS: TAMSULOSIN HCL 0.4 MG CAP PO SCH (20:24)
[2021-02-03] VITALS (8 sets, daily range): BP systolic 117–137; BP diastolic 50–85
[2021-02-03 05:02] LABS: BASOPHILS % 0.2 % (0.0-1.0); EOSINOPHILS # (AUTO) 0.2 (0.0-0.4); EOSINOPHILS % 1.6 % (0.0-6.0); HEMOGLOBIN 9.2 g/dL (14.0-18.0); LYMPHOCYTES # (AUTO) 0.9 (1.0-3.2); LYMPHOCYTES % 6.4 % (18.0-39.1); MEAN CORPUSCULAR HEMOGLOBIN 31.2 pg (28-32); MEAN CORPUSCULAR HGB CONC 32.9 g/dL (31-35); MEAN CORPUSCULAR VOLUME 94.9 fL (81-99); MONOCYTES # (AUTO) 0.6 (0.2-0.8); MONOCYTES % 4.5 % (4.4-11.3); NEUTROPHILS # (AUTO) 11.8 (2.1-6.9); NEUTROPHILS % 86.3 % (38.7-80.0); PLATELET COUNT 151 x10e3/uL (140-360); RED BLOOD COUNT 2.95 x10e6/uL (4.3-5.7); RED CELL DISTRIBUTION WIDTH 13.6 % (11.7-14.4)
[2021-02-03 05:18] LABS: ALBUMIN 2.4 g/dL (3.5-5.0); ALBUMIN/GLOBULIN RATIO 0.7 (0.8-2.0); ANION GAP 10.7 mmol/L (8-16); CALCIUM 8.4 mg/dL (8.4-10.2); CHOL/HDL RATIO 4.8 (3.9-4.7); CREATININE, SERUM 2.41 mg/dL (0.72-1.25); MAGNESIUM 1.6 MG/DL (1.3-2.1); POTASSIUM 3.7 mmol/L (3.5-5.1)
[2021-02-03] MEDS: CEFTRIAXONE 1 GM in SODIUM CHLORIDE 0.9% 50ML 50 ML IV SCH ×2 (06:15→16:00)
[2021-02-03] MEDS: INSULIN LISPRO 100 UNIT/1 ML 3ML VIAL SQ SCH ×4 (07:30→21:00)
[2021-02-03] MEDS: PANTOPRAZOLE SOD 40 MG TABEC PO SCH (08:45)
[2021-02-03] MEDS: GLIMEPIRIDE 2 MG TAB PO SCH (08:45)
[2021-02-03] MEDS: FOLIC ACID 1 MG TAB PO SCH (09:00)
[2021-02-03] MEDS: NIFEDIPINE CR 30 MG TAB PO SCH (09:00)
[2021-02-03] MEDS: CYANOCOBALAMIN INJ 1,000 MCG/ML VIAL IM SCH (09:00)
[2021-02-03] MEDS: CLOPIDOGREL BISULFATE 75 MG TAB PO SCH (09:00)
[2021-02-03] MEDS: LABETALOL HCL 100 MG TAB PO SCH ×2 (11:23→22:14)
[2021-02-03] MEDS: IRON SUCROSE 100 MG in SODIUM CHLORIDE 0.9% 100 ML 100 ML IV SCH (16:30)
[2021-02-03] MEDS: SIMVASTATIN 20 MG TAB PO SCH (22:13)
[2021-02-03] MEDS: TAMSULOSIN HCL 0.4 MG CAP PO SCH (22:13)
[2021-02-04] VITALS: BP 123/57
[2021-02-04 04:00] VITALS: BP 139/58
[2021-02-04] MEDS: CEFTRIAXONE 1 GM in SODIUM CHLORIDE 0.9% 50ML 50 ML IV SCH (04:34)
[2021-02-04 06:40] LABS: BASOPHILS % 0.1 % (0.0-1.0); EOSINOPHILS # (AUTO) 0.2 (0.0-0.4); EOSINOPHILS % 2.7 % (0.0-6.0); HEMATOCRIT 30.8 % (38.2-49.6); HEMOGLOBIN 9.8 g/dL (14.0-18.0); LYMPHOCYTES # (AUTO) 0.9 (1.0-3.2); LYMPHOCYTES % 9.6 % (18.0-39.1); MEAN CORPUSCULAR HEMOGLOBIN 30.2 pg (28-32); MEAN CORPUSCULAR HGB CONC 31.8 g/dL (31-35); MEAN CORPUSCULAR VOLUME 94.8 fL (81-99); MONOCYTES # (AUTO) 0.7 (0.2-0.8); MONOCYTES % 7.8 % (4.4-11.3); NEUTROPHILS # (AUTO) 7.1 (2.1-6.9); NEUTROPHILS % 79.2 % (38.7-80.0); PLATELET COUNT 168 x10e3/uL (140-360); RED BLOOD COUNT 3.25 x10e6/uL (4.3-5.7); RED CELL DISTRIBUTION WIDTH 13.4 % (11.7-14.4)
[2021-02-04] MEDS: INSULIN LISPRO 100 UNIT/1 ML 3ML VIAL SQ SCH ×2 (07:30→11:30)
[2021-02-04 08:17] VITALS: BP 148/61
[2021-02-04 08:22] VITALS: BP 148/61
[2021-02-04] MEDS: CYANOCOBALAMIN INJ 1,000 MCG/ML VIAL IM SCH (08:52)
[2021-02-04] MEDS: PANTOPRAZOLE SOD 40 MG TABEC PO SCH (08:52)
[2021-02-04] MEDS: NIFEDIPINE CR 30 MG TAB PO SCH (08:52)
[2021-02-04] MEDS: GLIMEPIRIDE 2 MG TAB PO SCH (08:52)
[2021-02-04] MEDS: LABETALOL HCL 100 MG TAB PO SCH (08:52)
[2021-02-04] MEDS: FOLIC ACID 1 MG TAB PO SCH (08:52)
[2021-02-04] MEDS: CLOPIDOGREL BISULFATE 75 MG TAB PO SCH (08:52)
[2021-02-04 11:42] LABS: ALBUMIN 2.4 g/dL (3.5-5.0); ALBUMIN/GLOBULIN RATIO 0.7 (0.8-2.0); ANION GAP 16.2 mmol/L (8-16); CALCIUM 8.7 mg/dL (8.4-10.2); CREATININE, SERUM 2.35 mg/dL (0.72-1.25)
[2021-02-04 11:46] LABS: POTASSIUM 5.2 mmol/L (3.5-5.1)
[2021-02-04 12:07] VITALS: BP 131/60
[2021-02-04] MEDS: IRON SUCROSE 100 MG in SODIUM CHLORIDE 0.9% 100 ML 100 ML IV SCH (13:35)
[2021-02-04] MEDS ORDERED: NIFEDIPINE ER30 M1 PO (13:39)
[2021-02-04] MEDS ORDERED: Folic Acid PO (13:39)
[2021-02-04] MEDS ORDERED: LABETALOL HCL100 MG PO (13:39)
[2021-02-04] MEDS ORDERED: KEFLEX125 MG/5 M PO (13:41)
[2021-02-04] MEDS ORDERED: SOD POLYSTYRENE SULFONATE SUSP 15 GM/60 ML BTL PO ONE (14:00)
== END 2021-02-04 15:42 | disposition home or self-care (01) | DRG 872 ==
LOC: ER 08:39 → ERHOLD 12:02 → MED/SURG3 13:30
PROVIDERS: ADMIT Internal Medicine; ATTEND Internal Medicine
PROC: 0FC98ZZ Extirpation of Matter from Common Bile Duct, Via Natural or Artificial Opening Endoscopic (ICD-10-PCS; 2021-01-31)
PROC: 0FBC8ZX Excision of Ampulla of Vater, Via Natural or Artificial Opening Endoscopic, Diagnostic (ICD-10-PCS; 2021-01-31)
PROC: 0F798ZZ Dilation of Common Bile Duct, Via Natural or Artificial Opening Endoscopic (ICD-10-PCS; principal; 2021-01-31 14:31)
DX: A41.89 Other specified sepsis (principal); K80.30 Calculus of bile duct with cholangitis, unspecified, without obstruction; I16.1 Hypertensive emergency; E87.1 Hypo-osmolality and hyponatremia; N17.9 Acute kidney failure, unspecified; N39.0 Urinary tract infection, site not specified; J81.1 Chronic pulmonary edema; R65.20 Severe sepsis without septic shock; I12.9 Hypertensive chronic kidney disease with stage 1 through stage 4 chronic kidney disease, or unspecified chronic kidney disease; N18.32 Chronic kidney disease, stage 3b; E78.5 Hyperlipidemia, unspecified; E11.22 Type 2 diabetes mellitus with diabetic chronic kidney disease; N40.0 Benign prostatic hyperplasia without lower urinary tract symptoms; R33.9 Retention of urine, unspecified; D64.9 Anemia, unspecified; I65.29 Occlusion and stenosis of unspecified carotid artery; E87.5 Hyperkalemia; E83.51 Hypocalcemia; E88.09 Other disorders of plasma-protein metabolism, not elsewhere classified; K57.30 Diverticulosis of large intestine without perforation or abscess without bleeding; Z88.1 Allergy status to other antibiotic agents; Z90.49 Acquired absence of other specified parts of digestive tract; Z88.8 Allergy status to other drugs, medicaments and biological substances; J47.9 Bronchiectasis, uncomplicated; Z20.822 Contact with and (suspected) exposure to COVID-19; Z79.84 Long term (current) use of oral hypoglycemic drugs
CPT/HCPCS: 36415; 43260; 71045; 71250; 74176; 74328; 76705; 76770; 80053; 80061; 81001; 82607; 82746; 82948; 83540; 83605; 83690; 83735; 84100; 84466; 84484; 85025; 85045; 85610; 87040; 87071; 87186; 87205; 88305; 93005; 93306; 96360; 99251; 99285; J0692; J0696; J1756; J2185; J2270; J2405; J3010; J3370; J3420; J7030; J7050; J7799; U0002

== ENCOUNTER 2021-09-03 21:22 | Inpatient (IN) | payer MEDICARE, OTHER ==
[~2021-09-03] VITALS: Ht 157.5 cm; Wt 69.9 kg
[~2021-09-03 21:22] MED LIST changes: +Folic Acid PO; +KEFLEX125 MG/5 M PO; +NIFEDIPINE ER30 M1 PO
[2021-09-03] MEDS ORDERED: ACETAMINOPHEN 325 MG TAB PO STA (21:33)
[2021-09-03] MEDS ORDERED: SODIUM CHLORIDE 0.9% 1000ML 1,000 ML IV STA (21:33)
[2021-09-03] MEDS ORDERED: LEVOFLOXACIN 750MG/D5W 150ML 150 ML IV ONE (21:45)
[2021-09-03 21:58] LABS: BASOPHILS % 0.2 % (0.0-1.0); EOSINOPHILS % 0.1 % (0.0-6.0); HEMATOCRIT 34.9 % (38.2-49.6); HEMOGLOBIN 11.6 g/dL (14.0-18.0); LYMPHOCYTES # (AUTO) 0.6 (1.0-3.2); LYMPHOCYTES % 4.9 % (18.0-39.1); MEAN CORPUSCULAR HEMOGLOBIN 31.2 pg (28-32); MEAN CORPUSCULAR HGB CONC 33.2 g/dL (31-35); MEAN CORPUSCULAR VOLUME 93.8 fL (81-99); MONOCYTES # (AUTO) 1.2 (0.2-0.8); MONOCYTES % 10.5 % (4.4-11.3); NEUTROPHILS # (AUTO) 9.6 (2.1-6.9); NEUTROPHILS % 83.8 % (38.7-80.0); PLATELET COUNT 211 x10e3/uL (140-360); RED BLOOD COUNT 3.72 x10e6/uL (4.3-5.7); RED CELL DISTRIBUTION WIDTH 12.3 % (11.7-14.4)
[2021-09-03 22:15] LABS: ALBUMIN 3.3 g/dL (3.5-5.0); ALBUMIN/GLOBULIN RATIO 0.5 (0.8-2.0); ANION GAP 15.2 mmol/L (8-16); CREATININE, SERUM 3.91 mg/dL (0.72-1.25); POTASSIUM 4.2 mmol/L (3.5-5.1)
[2021-09-03 22:34] LABS: CREATINE KINASE MB 0.4 ng/mL (0-5.0)
[2021-09-04] VITALS (10 sets, daily range): BP systolic 132–181; BP diastolic 54–71
[2021-09-04 00:33] LABS: CLARITY,URINE CLOUDY (CLEAR); COLOR,URINE YELLOW (YELLOW); LEUKOCYTE ESTERASE ,URINE NEGATIVE (NEGATIVE)
[2021-09-04 00:34] LABS: KETONES,URINE NEGATIVE (NEGATIVE); NITRITE,URINE NEGATIVE (NEGATIVE); PROTEIN,URINE DIPSTICK 2+ (NEGATIVE); URINE UROBILINOGEN 0.2 mg/dL (0.2 - 1)
[2021-09-04 00:38] LABS: BACTERIA,URINE FEW /HPF; EPITHELIAL CELLS,URINE FEW /LPF; RBC,URINE >50 /HPF (0-5)
[2021-09-04] MEDS: Morphine 4mg Syringe 4 MG/ML INJ IV PRN ×3 (00:44→11:50)
[2021-09-04] MEDS: ONDANSETRON HCL INJ 2MG/ML 2ML 2 MG/ML VIAL IV PRN ×3 (00:44→11:50)
[2021-09-04] MEDS ORDERED: METRONIDAZOLE 500MG/NS 100ML 100 ML IV STA (01:30)
[2021-09-04] MEDS ORDERED: LABETALOL HCL100 MG PO (02:01)
[2021-09-04] MEDS ORDERED: SODIUM BICARBO650 MG PO (02:01)
[2021-09-04] MEDS ORDERED: NIFEDIPINE ER30 M1 PO (02:01)
[2021-09-04] MEDS ORDERED: SODIUM CHLORIDE 0.9% 500ML 500 ML ONE (02:38)
[2021-09-04] MEDS: LACTATED RINGER'S 1,000 ML INJ SCH ×2 (02:42→12:03)
[2021-09-04] MEDS ORDERED: LACTATED RINGER'S 1,000 ML ONE (02:44)
[2021-09-04] MEDS: METRONIDAZOLE 500MG/NS 100ML 100 ML IV SCH ×3 (04:34→20:32)
[2021-09-04] MEDS ORDERED: METRONIDAZOLE 500MG/NS 100ML 100 ML IV SCH (06:00)
[2021-09-04 07:43] LABS: CREATINE KINASE MB 0.8 ng/mL (0-5.0)
[2021-09-04 10:03] LABS: ALBUMIN 2.6 g/dL (3.5-5.0); ALBUMIN/GLOBULIN RATIO 0.5 (0.8-2.0); ANION GAP 13.7 mmol/L (8-16); CREATININE, SERUM 3.57 mg/dL (0.72-1.25); POTASSIUM 4.7 mmol/L (3.5-5.1)
[2021-09-04] MEDS ORDERED: CEFTRIAXONE 1 GM VIAL IV SCH (12:00)
[2021-09-04] MEDS ORDERED: FENTANYL CITRATE/PF 100MCG/2 ML INJ ONE (12:59)
[2021-09-04] MEDS ORDERED: LIDOCAINE HCL 2% LOCAL INJ 5 ML SDV VIAL INJ ONE (13:52)
[2021-09-04] MEDS ORDERED: ONDANSETRON HCL INJ 2MG/ML 2ML 2 MG/ML VIAL ONE (13:52)
[2021-09-04] MEDS ORDERED: PROPOFOL IV EMULSION 10 MG/ML 20 ML VIAL ONE (13:52)
[2021-09-04] MEDS ORDERED: LACTATED RINGER'S 1,000 ML INJ STA (16:15)
[2021-09-04 16:38] LABS: CREATINE KINASE MB 0.9 ng/mL (0-5.0)
[2021-09-04] MEDS ORDERED: LACTATED RINGER'S 1,000 ML INJ ONE (17:00)
[2021-09-04] MEDS ORDERED: IOPAMIDOL 610MG/1ML 300 MG/ML VIAL IV ONE (19:01)
[2021-09-04] MEDS ORDERED: LEVOFLOXACIN 500MG/D5W 100ML 100 ML IV SCH (22:00)
[2021-09-04] MEDS ORDERED: LEVOFLOXACIN 750MG/D5W 150ML 150 ML IV SCH (22:00)
[2021-09-05] VITALS (8 sets, daily range): BP systolic 141–184; BP diastolic 65–75
[2021-09-05] MEDS: METRONIDAZOLE 500MG/NS 100ML 100 ML IV SCH ×4 (01:43→21:21)
[2021-09-05 06:01] LABS: BASOPHILS % 0.2 % (0.0-1.0); EOSINOPHILS # (AUTO) 0.1 (0.0-0.4); EOSINOPHILS % 1.3 % (0.0-6.0); HEMATOCRIT 29.2 % (38.2-49.6); HEMOGLOBIN 9.4 g/dL (14.0-18.0); LYMPHOCYTES # (AUTO) 0.9 (1.0-3.2); LYMPHOCYTES % 8.2 % (18.0-39.1); MEAN CORPUSCULAR HEMOGLOBIN 31.1 pg (28-32); MEAN CORPUSCULAR HGB CONC 32.2 g/dL (31-35); MEAN CORPUSCULAR VOLUME 96.7 fL (81-99); MONOCYTES % 9.1 % (4.4-11.3); NEUTROPHILS # (AUTO) 8.7 (2.1-6.9); NEUTROPHILS % 80.5 % (38.7-80.0); PLATELET COUNT 142 x10e3/uL (140-360); RED BLOOD COUNT 3.02 x10e6/uL (4.3-5.7); RED CELL DISTRIBUTION WIDTH 13.1 % (11.7-14.4)
[2021-09-05 06:33] LABS: ALBUMIN 2.2 g/dL (3.5-5.0); ALBUMIN/GLOBULIN RATIO 0.5 (0.8-2.0); ANION GAP 12.5 mmol/L (8-16); CALCIUM 7.7 mg/dL (8.4-10.2); CREATININE, SERUM 3.3 mg/dL (0.72-1.25); POTASSIUM 4.5 mmol/L (3.5-5.1)
[2021-09-05 08:12] LABS: CREATINE KINASE MB 1.8 ng/mL (0-5.0)
[2021-09-05] MEDS ORDERED: SODIUM CHLORIDE 0.9% 1000ML 1,000 ML ONE (08:44)
[2021-09-05 13:19] LABS: % IRON SATURATION 8 % (15-50); IRON 17 ug/dL (65-175); TOTAL IRON BINDING CAPACITY 213 ug/dL (261-478); TRANSFERRIN 152 mg/dL (174-364)
[2021-09-05] MEDS: NIFEDIPINE CR 30 MG TAB PO SCH (16:24)
[2021-09-05] MEDS: LABETALOL HCL 100 MG TAB PO SCH (16:24)
[2021-09-05] MEDS ORDERED: LEVOFLOXACIN 500MG/D5W 100ML 100 ML IV SCH (22:00)
[2021-09-06] VITALS (7 sets, daily range): BP systolic 124–171; BP diastolic 55–65
[2021-09-06] MEDS ORDERED: CYANOCOBALAMIN INJ 1,000 MCG/ML VIAL IM ONE (01:15)
[2021-09-06] MEDS: METRONIDAZOLE 500MG/NS 100ML 100 ML IV SCH ×4 (02:55→20:52)
[2021-09-06 05:36] LABS: BASOPHILS % 0.2 % (0.0-1.0); EOSINOPHILS # (AUTO) 0.3 (0.0-0.4); EOSINOPHILS % 3.5 % (0.0-6.0); HEMATOCRIT 30.8 % (38.2-49.6); HEMOGLOBIN 9.8 g/dL (14.0-18.0); LYMPHOCYTES % 10.5 % (18.0-39.1); MEAN CORPUSCULAR HEMOGLOBIN 30.7 pg (28-32); MEAN CORPUSCULAR HGB CONC 31.8 g/dL (31-35); MEAN CORPUSCULAR VOLUME 96.6 fL (81-99); MONOCYTES % 10.9 % (4.4-11.3); NEUTROPHILS # (AUTO) 6.8 (2.1-6.9); NEUTROPHILS % 73.8 % (38.7-80.0); PLATELET COUNT 172 x10e3/uL (140-360); RED BLOOD COUNT 3.19 x10e6/uL (4.3-5.7); RED CELL DISTRIBUTION WIDTH 12.7 % (11.7-14.4)
[2021-09-06 06:01] LABS: ALBUMIN 2.2 g/dL (3.5-5.0); ALBUMIN/GLOBULIN RATIO 0.4 (0.8-2.0); ANION GAP 13.3 mmol/L (8-16); CREATININE, SERUM 3.12 mg/dL (0.72-1.25); POTASSIUM 4.3 mmol/L (3.5-5.1)
[2021-09-06] MEDS ORDERED: IRON SUCROSE 100 MG in SODIUM CHLORIDE 0.9% 100 ML 100 ML IV SCH (09:00)
[2021-09-06] MEDS: CLOPIDOGREL BISULFATE 75 MG TAB PO SCH (10:12)
[2021-09-06] MEDS: NIFEDIPINE CR 30 MG TAB PO SCH (10:13)
[2021-09-06] MEDS: LABETALOL HCL 100 MG TAB PO SCH (10:13)
[2021-09-06] MEDS: FUROSEMIDE INJ 10 MG/ML 4 ML VIAL IV SCH (13:45)
[2021-09-07] VITALS: BP 162/58
[2021-09-07] MEDS: METRONIDAZOLE 500MG/NS 100ML 100 ML IV SCH ×2 (00:39→09:24)
[2021-09-07 05:04] LABS: BASOPHILS % 0.3 % (0.0-1.0); EOSINOPHILS # (AUTO) 0.4 (0.0-0.4); HEMATOCRIT 33.5 % (38.2-49.6); HEMOGLOBIN 10.7 g/dL (14.0-18.0); LYMPHOCYTES # (AUTO) 1.1 (1.0-3.2); LYMPHOCYTES % 14.4 % (18.0-39.1); MEAN CORPUSCULAR HEMOGLOBIN 30.7 pg (28-32); MEAN CORPUSCULAR HGB CONC 31.9 g/dL (31-35); MEAN CORPUSCULAR VOLUME 96.3 fL (81-99); MONOCYTES # (AUTO) 0.9 (0.2-0.8); NEUTROPHILS # (AUTO) 4.8 (2.1-6.9); NEUTROPHILS % 66.4 % (38.7-80.0); PLATELET COUNT 236 x10e3/uL (140-360); RED BLOOD COUNT 3.48 x10e6/uL (4.3-5.7); RED CELL DISTRIBUTION WIDTH 12.6 % (11.7-14.4)
[2021-09-07 05:13] VITALS: BP 143/53
[2021-09-07 05:35] LABS: ALBUMIN 2.8 g/dL (3.5-5.0); ALBUMIN/GLOBULIN RATIO 0.6 (0.8-2.0); ANION GAP 12.8 mmol/L (8-16); CALCIUM 8.6 mg/dL (8.4-10.2); CREATININE, SERUM 3.35 mg/dL (0.72-1.25); POTASSIUM 3.8 mmol/L (3.5-5.1)
[2021-09-07] MEDS ORDERED: CYANOCOBALAMIN INJ 1,000 MCG/ML VIAL IM SCH (09:00)
[2021-09-07] MEDS: CLOPIDOGREL BISULFATE 75 MG TAB PO SCH (09:25)
[2021-09-07] MEDS: FUROSEMIDE INJ 10 MG/ML 4 ML VIAL IV SCH (09:25)
[2021-09-07] MEDS: NIFEDIPINE CR 30 MG TAB PO SCH (09:26)
[2021-09-07] MEDS: LABETALOL HCL 100 MG TAB PO SCH (09:26)
[2021-09-07 09:46] VITALS: BP 130/61
[2021-09-07 09:47] VITALS: BP 130/61
[2021-09-07] MEDS ORDERED: LEVOFLOXACIN250 MG PO (11:46)
[2021-09-07 12:38] VITALS: BP 150/61
[2021-09-07] MEDS ORDERED: METRONIDAZOLE 500 MG TAB PO SCH (14:00)
[2021-09-07] MEDS ORDERED: LEVOFLOXACIN 500 MG TAB PO SCH (21:00)
[2021-09-08] MEDS ORDERED: ASPIRIN 81 MG CHEW TAB PO SCH (09:00)
== END 2021-09-07 13:00 | disposition home or self-care (01) | DRG 872 ==
LOC: ER 21:34 → ERHOLD 09-04 00:22 → MED/SURG 09-04 01:40
PROVIDERS: ADMIT Internal Medicine; ATTEND Internal Medicine
PROC: 3E03329 Introduction of Other Anti-infective into Peripheral Vein, Percutaneous Approach (ICD-10-PCS; 2021-09-03)
PROC: 0FC98ZZ Extirpation of Matter from Common Bile Duct, Via Natural or Artificial Opening Endoscopic (ICD-10-PCS; principal; 2021-09-04 18:54)
PROC: 0F798DZ Dilation of Common Bile Duct with Intraluminal Device, Via Natural or Artificial Opening Endoscopic (ICD-10-PCS; 2021-09-04 18:54)
DX: A41.59 Other Gram-negative sepsis (principal); N18.5 Chronic kidney disease, stage 5; K83.09 Other cholangitis; N17.9 Acute kidney failure, unspecified; N39.0 Urinary tract infection, site not specified; E87.2 Acidosis; I12.0 Hypertensive chronic kidney disease with stage 5 chronic kidney disease or end stage renal disease; E11.22 Type 2 diabetes mellitus with diabetic chronic kidney disease; E11.65 Type 2 diabetes mellitus with hyperglycemia; D64.9 Anemia, unspecified; I35.0 Nonrheumatic aortic (valve) stenosis; E78.5 Hyperlipidemia, unspecified; I65.29 Occlusion and stenosis of unspecified carotid artery; K57.30 Diverticulosis of large intestine without perforation or abscess without bleeding; Z90.49 Acquired absence of other specified parts of digestive tract; Z88.1 Allergy status to other antibiotic agents; Z88.8 Allergy status to other drugs, medicaments and biological substances; Z20.822 Contact with and (suspected) exposure to COVID-19; Z86.73 Personal history of transient ischemic attack (TIA), and cerebral infarction without residual deficits; Z77.22 Contact with and (suspected) exposure to environmental tobacco smoke (acute) (chronic)
CPT/HCPCS: 36415; 43260; 43274; 74176; 74181; 74328; 80048; 80053; 81001; 82550; 82553; 82607; 82746; 82948; 83540; 83605; 83690; 84466; 84484; 85025; 85045; 87040; 87071; 87086; 87186; 87205; 93005; 93306; 99284; J0696; J1756; J1940; J1956; J2001; J2270; J2405; J3010; J3420; J7030; J7040; J7121

== ENCOUNTER 2023-03-20 16:57 | Inpatient (IN) | payer MEDICARE, OTHER ==
[~2023-03-20] VITALS: Ht 157.5 cm; Wt 69.9 kg
[~2023-03-20 16:57] MED LIST changes: +LEVOFLOXACIN250 MG PO
[2023-03-20 18:30] LABS: BASOPHILS % 0.2 % (0.0-1.0); EOSINOPHILS # (AUTO) 0.2 (0.0-0.4); EOSINOPHILS % 2.1 % (0.0-6.0); HEMATOCRIT 27.5 % (38.2-49.6); HEMOGLOBIN 8.9 g/dL (14.0-18.0); LYMPHOCYTES # (AUTO) 1.7 (1.0-3.2); LYMPHOCYTES % 19.2 % (18.0-39.1); MEAN CORPUSCULAR HEMOGLOBIN 30.3 pg (28-32); MEAN CORPUSCULAR HGB CONC 32.4 g/dL (31-35); MEAN CORPUSCULAR VOLUME 93.5 fL (81-99); MONOCYTES # (AUTO) 0.7 (0.2-0.8); MONOCYTES % 8.1 % (4.4-11.3); NEUTROPHILS % 69.9 % (38.7-80.0); PLATELET COUNT 273 x10e3/uL (140-360); RED BLOOD COUNT 2.94 x10e6/uL (4.3-5.7); WHITE BLOOD COUNT 8.63 x10e3/uL (4.8-10.8)
[2023-03-20 18:37] LABS: COLOR,URINE YELLOW (YELLOW)
[2023-03-20 18:38] LABS: BILIRUBIN,URINE NEGATIVE (NEGATIVE); CLARITY,URINE SL CLOUDY (CLEAR); GLUCOSE, URINE NEGATIVE (NEGATIVE); KETONES,URINE NEGATIVE (NEGATIVE); LEUKOCYTE ESTERASE ,URINE NEGATIVE (NEGATIVE); NITRITE,URINE NEGATIVE (NEGATIVE); PH,URINE 6 (5 - 7); PROTEIN,URINE DIPSTICK 2+ (NEGATIVE); URINE UROBILINOGEN 0.2 mg/dL (0.2 - 1)
[2023-03-20 18:47] LABS: BACTERIA,URINE MODERATE /HPF; RBC,URINE 0-5 /HPF (0-5)
[2023-03-20 18:52] LABS: ALBUMIN 2.9 g/dL (3.5-5.0); ALBUMIN/GLOBULIN RATIO 0.5 (0.8-2.0); ANION GAP 15.2 mmol/L (8-16); BILIRUBIN,TOTAL 0.8 mg/dL (0.2-1.2); CALCIUM 8.9 mg/dL (8.4-10.2); CREATININE, SERUM 3.69 mg/dL (0.72-1.25); POTASSIUM 4.2 mmol/L (3.5-5.1); TOTAL PROTEIN 8.5 g/dL (6.5-8.1)
[2023-03-20 20:22] LABS: CREATINE KINASE 35 IU/L (30-200)
[2023-03-20 20:31] LABS: TROPONIN I < 0.001 ng/mL (0-0.300)
[2023-03-20] MEDS ORDERED: HYDRALAZINE HCL 20 MG/ML VIAL IV STA (21:02)
[2023-03-20] MEDS: SODIUM CHLORIDE 0.9% 1000ML 1,000 ML IV SCH (21:34)
[2023-03-20 22:04] VITALS: PULSE 58; RESP 18; O2SAT 99
[2023-03-20 22:26] VITALS: BP 200/58; PULSE 65; RESP 17; TEMP 97.9; O2SAT 100
[2023-03-20] MEDS: HYDRALAZINE HCL 20 MG/ML VIAL IV PRN (22:44)
[2023-03-20] MEDS ORDERED: PREDNISONE5 MG PO (22:55)
[2023-03-20] MEDS ORDERED: CARVEDILOL12.5 MG PO (22:55)
[2023-03-20] MEDS ORDERED: NEURONTIN100 MG PO (22:55)
[2023-03-20 23:12] VITALS: BP 200/58; PULSE 59; RESP 16; TEMP 97.9; O2SAT 99
[2023-03-20 23:17] VITALS: BP 200/58; PULSE 59; RESP 16; TEMP 97.9; O2SAT 99
[2023-03-21] VITALS (11 sets, daily range): BP systolic 135–208; BP diastolic 48–62; PULSE 56–72; RESP 17–18; TEMP 98.1–99; O2SAT 98–100
[2023-03-21 04:42] LABS: BASOPHILS % 0.3 % (0.0-1.0); EOSINOPHILS # (AUTO) 0.2 (0.0-0.4); EOSINOPHILS % 3.1 % (0.0-6.0); HEMATOCRIT 25.5 % (38.2-49.6); HEMOGLOBIN 8.2 g/dL (14.0-18.0); LYMPHOCYTES # (AUTO) 1.6 (1.0-3.2); MEAN CORPUSCULAR HEMOGLOBIN 30.7 pg (28-32); MEAN CORPUSCULAR HGB CONC 32.2 g/dL (31-35); MEAN CORPUSCULAR VOLUME 95.5 fL (81-99); MONOCYTES # (AUTO) 0.9 (0.2-0.8); NEUTROPHILS # (AUTO) 5.1 (2.1-6.9); NEUTROPHILS % 65.3 % (38.7-80.0); PLATELET COUNT 239 x10e3/uL (140-360); RED BLOOD COUNT 2.67 x10e6/uL (4.3-5.7); RED CELL DISTRIBUTION WIDTH 13.1 % (11.7-14.4); WHITE BLOOD COUNT 7.75 x10e3/uL (4.8-10.8)
[2023-03-21 04:55] LABS: ALBUMIN 2.5 g/dL (3.5-5.0); ALBUMIN/GLOBULIN RATIO 0.6 (0.8-2.0); ANION GAP 13.1 mmol/L (8-16); BILIRUBIN,TOTAL 0.6 mg/dL (0.2-1.2); CALCIUM 8.2 mg/dL (8.4-10.2); CREATININE, SERUM 3.52 mg/dL (0.72-1.25); POTASSIUM 4.1 mmol/L (3.5-5.1)
[2023-03-21] MEDS: SODIUM CHLORIDE 0.9% 1000ML 1,000 ML IV SCH (05:25)
[2023-03-21 08:12] LABS: TROPONIN I 0.003 ng/mL (0-0.300)
[2023-03-21] MEDS: HYDRALAZINE HCL 20 MG/ML VIAL IV PRN ×2 (11:03→21:42)
[2023-03-21 13:48] LABS: TROPONIN I 0.006 ng/mL (0-0.300)
[2023-03-21] MEDS: CARVEDILOL 12.5 MG TAB PO SCH (16:11)
[2023-03-21] MEDS: SIMVASTATIN 20 MG TAB PO SCH (21:37)
[2023-03-22] VITALS (9 sets, daily range): BP systolic 137–164; BP diastolic 43–54; PULSE 61–71; RESP 17–19; TEMP 97.9–98.5; O2SAT 97–100
[2023-03-22] MEDS: HYDRALAZINE HCL 20 MG/ML VIAL IV PRN (06:28)
[2023-03-22] MEDS: SODIUM BICARBONATE 650 MG TAB PO SCH (08:53)
[2023-03-22] MEDS: NIFEDIPINE CR 30 MG TAB PO SCH (08:53)
[2023-03-22] MEDS: PANTOPRAZOLE SOD 40 MG TABEC PO SCH (08:54)
[2023-03-22] MEDS: CARVEDILOL 12.5 MG TAB PO SCH ×2 (08:54→17:06)
[2023-03-22] MEDS ORDERED: LEVOFLOXACIN 500MG/D5W 100ML 100 ML IV ONE (17:30)
[2023-03-22] MEDS: SIMVASTATIN 20 MG TAB PO SCH (20:31)
[2023-03-23] VITALS (11 sets, daily range): BP systolic 120–171; BP diastolic 45–56; PULSE 60–78; RESP 12–20; TEMP 97.5–98.1; O2SAT 95–100
[2023-03-23 06:29] LABS: BASOPHILS % 0.3 % (0.0-1.0); EOSINOPHILS # (AUTO) 0.4 (0.0-0.4); EOSINOPHILS % 5.1 % (0.0-6.0); HEMATOCRIT 28.5 % (38.2-49.6); HEMOGLOBIN 9.1 g/dL (14.0-18.0); LYMPHOCYTES % 26.7 % (18.0-39.1); MEAN CORPUSCULAR HGB CONC 31.9 g/dL (31-35); MEAN CORPUSCULAR VOLUME 96.9 fL (81-99); MONOCYTES # (AUTO) 0.7 (0.2-0.8); NEUTROPHILS # (AUTO) 4.3 (2.1-6.9); NEUTROPHILS % 58.5 % (38.7-80.0); PLATELET COUNT 282 x10e3/uL (140-360); RED BLOOD COUNT 2.94 x10e6/uL (4.3-5.7); RED CELL DISTRIBUTION WIDTH 13.1 % (11.7-14.4)
[2023-03-23 06:59] LABS: ALBUMIN 2.7 g/dL (3.5-5.0); BILIRUBIN,DIRECT 0.4 mg/dL (0.0-0.5); BILIRUBIN,TOTAL 0.8 mg/dL (0.2-1.2); INR 0.99; PROTHROMBIN TIME 13.3 seconds (11.9-14.5); TOTAL PROTEIN 7.6 g/dL (6.5-8.1)
[2023-03-23] MEDS: CARVEDILOL 12.5 MG TAB PO SCH ×2 (08:39→17:00)
[2023-03-23] MEDS: SODIUM BICARBONATE 650 MG TAB PO SCH (08:40)
[2023-03-23] MEDS: PANTOPRAZOLE SOD 40 MG TABEC PO SCH (08:40)
[2023-03-23] MEDS: NIFEDIPINE CR 30 MG TAB PO SCH (08:40)
[2023-03-23] MEDS: HYDRALAZINE HCL 20 MG/ML VIAL IV PRN ×2 (08:42→23:40)
[2023-03-23] MEDS ORDERED: IOPAMIDOL 610MG/1ML 300 MG/ML VIAL IV ONE (11:00)
[2023-03-23] MEDS ORDERED: SUGAMMADEX SODIUM 200 MG/2 ML VIAL IV ONE (11:35)
[2023-03-23] MEDS ORDERED: METOCLOPRAMIDE HCL 10 MG/2ML VIAL ONE (12:16)
[2023-03-23] MEDS ORDERED: SEVOFLURANE INHAL SOLN 250 ML PEN BTL ONE (12:16)
[2023-03-23] MEDS ORDERED: ONDANSETRON HCL INJ 2MG/ML 2ML 2 MG/ML VIAL ONE (12:16)
[2023-03-23] MEDS ORDERED: SUCCINYLCHOLINE CHLORIDE 20 MG/ML 10ML VIAL ONE (12:16)
[2023-03-23] MEDS ORDERED: LIDOCAINE HCL 2% LOCAL INJ 5 ML SDV VIAL INJ ONE (12:16)
[2023-03-23] MEDS ORDERED: PROPOFOL IV EMULSION 10 MG/ML 20 ML VIAL ONE (12:16)
[2023-03-23] MEDS ORDERED: ROCURONIUM BROMIDE 10 MG/ML 5ML VIAL IV ONE (12:16)
[2023-03-23] MEDS ORDERED: KETOROLAC TROMETHAMINE 30 MG/ML VIAL ONE (12:16)
[2023-03-23] MEDS ORDERED: DEXAMETHASONE SOD PHOS INJ 4 MG/ML SDV ONE (12:16)
[2023-03-23] MEDS ORDERED: FENTANYL CITRATE/PF 100MCG/2 ML INJ ONE (13:06)
[2023-03-23] MEDS: SIMVASTATIN 20 MG TAB PO SCH (20:41)
[2023-03-24] VITALS (10 sets, daily range): BP systolic 111–175; BP diastolic 44–89; PULSE 64–86; RESP 17–19; TEMP 97.7–98.2; O2SAT 66–100
[2023-03-24 06:51] LABS: ALBUMIN 2.6 g/dL (3.5-5.0); BILIRUBIN,TOTAL 0.7 mg/dL (0.2-1.2); TOTAL PROTEIN 6.7 g/dL (6.5-8.1)
[2023-03-24 07:27] LABS: BILIRUBIN,DIRECT 0.4 mg/dL (0.0-0.5)
[2023-03-24] MEDS: SODIUM BICARBONATE 650 MG TAB PO SCH (08:32)
[2023-03-24] MEDS: PANTOPRAZOLE SOD 40 MG TABEC PO SCH (08:32)
[2023-03-24] MEDS: NIFEDIPINE CR 30 MG TAB PO SCH (08:33)
[2023-03-24] MEDS: CARVEDILOL 12.5 MG TAB PO SCH ×2 (08:33→16:38)
[2023-03-24] MEDS: LEVOFLOXACIN 250MG/D5W 50ML 50 ML IV SCH (17:10)
[2023-03-24] MEDS ORDERED: SODIUM CHLORIDE 0.9% 100 ML ONE (17:15)
[2023-03-24] MEDS: SIMVASTATIN 20 MG TAB PO SCH (22:09)
[2023-03-24] MEDS: ACETAMINOPHEN 325 MG TAB PO PRN (23:03)
[2023-03-25] VITALS (8 sets, daily range): BP systolic 115–165; BP diastolic 45–57; PULSE 56–75; RESP 17–22; TEMP 97.5–98.4; O2SAT 97–100
[2023-03-25] MEDS: HYDRALAZINE HCL 20 MG/ML VIAL IV PRN (05:32)
[2023-03-25 05:37] LABS: BASOPHILS % 0.1 % (0.0-1.0); EOSINOPHILS # (AUTO) 0.6 (0.0-0.4); HEMATOCRIT 27.2 % (38.2-49.6); HEMOGLOBIN 8.8 g/dL (14.0-18.0); LYMPHOCYTES # (AUTO) 1.5 (1.0-3.2); LYMPHOCYTES % 19.8 % (18.0-39.1); MEAN CORPUSCULAR HEMOGLOBIN 30.9 pg (28-32); MEAN CORPUSCULAR HGB CONC 32.4 g/dL (31-35); MEAN CORPUSCULAR VOLUME 95.4 fL (81-99); MONOCYTES # (AUTO) 0.7 (0.2-0.8); MONOCYTES % 8.7 % (4.4-11.3); NEUTROPHILS # (AUTO) 4.8 (2.1-6.9); NEUTROPHILS % 62.9 % (38.7-80.0); PLATELET COUNT 288 x10e3/uL (140-360); RED BLOOD COUNT 2.85 x10e6/uL (4.3-5.7); RED CELL DISTRIBUTION WIDTH 13.1 % (11.7-14.4); WHITE BLOOD COUNT 7.66 x10e3/uL (4.8-10.8)
[2023-03-25 06:19] LABS: ALBUMIN 2.5 g/dL (3.5-5.0); ALBUMIN/GLOBULIN RATIO 0.6 (0.8-2.0); ANION GAP 13.9 mmol/L (8-16); BILIRUBIN,TOTAL 0.4 mg/dL (0.2-1.2); CALCIUM 8.2 mg/dL (8.4-10.2); CREATININE, SERUM 3.73 mg/dL (0.72-1.25); POTASSIUM 4.9 mmol/L (3.5-5.1); TOTAL PROTEIN 6.6 g/dL (6.5-8.1)
[2023-03-25] MEDS: SODIUM BICARBONATE 650 MG TAB PO SCH (08:24)
[2023-03-25] MEDS: NIFEDIPINE CR 30 MG TAB PO SCH (08:24)
[2023-03-25] MEDS: ACETAMINOPHEN 325 MG TAB PO PRN ×3 (08:25→21:49)
[2023-03-25] MEDS: CARVEDILOL 12.5 MG TAB PO SCH ×2 (08:25→16:14)
[2023-03-25] MEDS: PANTOPRAZOLE SOD 40 MG TABEC PO SCH (08:25)
[2023-03-25] MEDS: SIMVASTATIN 20 MG TAB PO SCH (21:49)
[2023-03-26] VITALS (9 sets, daily range): BP systolic 122–195; BP diastolic 44–61; PULSE 58–79; RESP 17–18; TEMP 97.6–98.1; O2SAT 96–100
[2023-03-26] MEDS: SODIUM BICARBONATE 650 MG TAB PO SCH (07:51)
[2023-03-26] MEDS: PANTOPRAZOLE SOD 40 MG TABEC PO SCH (07:51)
[2023-03-26] MEDS: NIFEDIPINE CR 30 MG TAB PO SCH (07:52)
[2023-03-26] MEDS: ACETAMINOPHEN 325 MG TAB PO PRN ×2 (07:53→17:30)
[2023-03-26] MEDS: HYDRALAZINE HCL 20 MG/ML VIAL IV PRN (07:57)
[2023-03-26] MEDS: CARVEDILOL 12.5 MG TAB PO SCH ×2 (07:59→17:30)
[2023-03-26] MEDS: LEVOFLOXACIN 250MG/D5W 50ML 50 ML IV SCH (17:00)
[2023-03-27] MEDS ORDERED: LEVOFLOXACIN 250 MG TAB PO SCH (09:00)
== END 2023-03-26 17:45 | disposition home or self-care (01) | DRG 982 ==
LOC: ER 17:27 → ERHOLD 19:56 → MED/SURG 22:15
PROVIDERS: ADMIT Internal Medicine; ATTEND Internal Medicine
PROC: 0FPD8DZ Removal of Intraluminal Device from Pancreatic Duct, Via Natural or Artificial Opening Endoscopic (ICD-10-PCS; 2023-03-23)
PROC: BF111ZZ Fluoroscopy of Biliary and Pancreatic Ducts using Low Osmolar Contrast (ICD-10-PCS; 2023-03-23)
PROC: 0FC Hepatobiliary System and Pancreas, Extirpation (ICD-10-PCS; principal; 2023-03-23 11:06)
DX: T85.858A Stenosis due to other internal prosthetic devices, implants and grafts, initial encounter (principal); I16.9 Hypertensive crisis, unspecified; N17.9 Acute kidney failure, unspecified; N18.4 Chronic kidney disease, stage 4 (severe); T18.3XXA Foreign body in small intestine, initial encounter; N28.89 Other specified disorders of kidney and ureter; J47.9 Bronchiectasis, uncomplicated; R00.1 Bradycardia, unspecified; D63.1 Anemia in chronic kidney disease; I12.9 Hypertensive chronic kidney disease with stage 1 through stage 4 chronic kidney disease, or unspecified chronic kidney disease; R74.01 Elevation of levels of liver transaminase levels; Z96.49 Presence of other endocrine implants; E88.09 Other disorders of plasma-protein metabolism, not elsewhere classified; E78.5 Hyperlipidemia, unspecified; X58.XXXA Exposure to other specified factors, initial encounter; Y92.9 Unspecified place or not applicable; Z20.822 Contact with and (suspected) exposure to COVID-19; I65.29 Occlusion and stenosis of unspecified carotid artery; K44.9 Diaphragmatic hernia without obstruction or gangrene; K80.50 Calculus of bile duct without cholangitis or cholecystitis without obstruction; I25.10 Atherosclerotic heart disease of native coronary artery without angina pectoris; E11.22 Type 2 diabetes mellitus with diabetic chronic kidney disease; E83.51 Hypocalcemia; Z79.890 Hormone replacement therapy; Z79.899 Other long term (current) drug therapy
CPT/HCPCS: 36415; 43260; 71250; 74176; 74181; 74328; 80053; 80076; 81001; 82550; 82948; 83690; 84484; 85025; 85610; 93005; 93306; 94799; 99284; J0330; J1100; J1885; J1956; J2001; J2405; J2765; J7030; J7050; U0002

== ENCOUNTER 2023-08-27 10:30 | Emergency (ER) | payer MEDICARE, OTHER ==
[~2023-08-27] VITALS: Ht 157.5 cm; Wt 69.9 kg
[~2023-08-27 10:30] MED LIST changes: +CARVEDILOL12.5 MG PO; +CEFDINIR300 MG PO; +NEURONTIN100 MG PO; +PREDNISONE5 MG PO
[2023-08-27 11:16] LABS: BASOPHILS % 0.2 % (0.0-1.0); EOSINOPHILS # (AUTO) 0.2 (0.0-0.4); EOSINOPHILS % 1.6 % (0.0-6.0); HEMATOCRIT 31.5 % (38.2-49.6); HEMOGLOBIN 10.7 g/dL (14.0-18.0); LYMPHOCYTES # (AUTO) 1.3 (1.0-3.2); MEAN CORPUSCULAR HEMOGLOBIN 30.9 pg (28-32); MONOCYTES # (AUTO) 1.1 (0.2-0.8); MONOCYTES % 9.1 % (4.4-11.3); NEUTROPHILS # (AUTO) 9.2 (2.1-6.9); NEUTROPHILS % 76.7 % (38.7-80.0); PLATELET COUNT 223 x10e3/uL (140-360); RED BLOOD COUNT 3.46 x10e6/uL (4.3-5.7); RED CELL DISTRIBUTION WIDTH 12.9 % (11.7-14.4); WHITE BLOOD COUNT 11.93 x10e3/uL (4.8-10.8)
[2023-08-27 11:36] LABS: ALBUMIN 2.3 g/dL (3.5-5.0); ALBUMIN/GLOBULIN RATIO 0.4 (0.8-2.0); ANION GAP 14.5 mmol/L (8-16); BILIRUBIN,TOTAL 0.5 mg/dL (0.2-1.2); CALCIUM 8.8 mg/dL (8.4-10.2); CREATININE, SERUM 3.3 mg/dL (0.72-1.25); POTASSIUM 4.5 mmol/L (3.5-5.1); TOTAL PROTEIN 7.7 g/dL (6.5-8.1)
[2023-08-27] MEDS: ACETAMINOPHEN 325 MG TAB PO ONE (12:51)
[2023-08-27] MEDS: CYCLOBENZAPRINE HCL 10 MG TAB PO ONE (12:51)
[2023-08-27 12:55] LABS: BILIRUBIN,URINE NEGATIVE (NEGATIVE); CLARITY,URINE CLEAR (CLEAR); COLOR,URINE YELLOW (YELLOW); GLUCOSE, URINE NEGATIVE (NEGATIVE); KETONES,URINE NEGATIVE (NEGATIVE); LEUKOCYTE ESTERASE ,URINE NEGATIVE (NEGATIVE); NITRITE,URINE NEGATIVE (NEGATIVE); PH,URINE 6 (5 - 7); PROTEIN,URINE DIPSTICK 2+ (NEGATIVE); URINE UROBILINOGEN 0.2 mg/dL (0.2 - 1)
[2023-08-27 13:07] LABS: BACTERIA,URINE MODERATE /HPF; EPITHELIAL CELLS,URINE RARE /LPF; RBC,URINE 0-5 /HPF (0-5); WBC,URINE (MAN) 0-5 /HPF (0-5)
[2023-08-27] MEDS ORDERED: CYCLOBENZAPRINE10 MG PO (16:19)
[2023-08-27 17:20] VITALS: O2SAT 98
== END 2023-08-27 17:21 | disposition home or self-care (01) ==
LOC: ER 10:44
DX: M54.50 Low back pain, unspecified (principal); I10 Essential (primary) hypertension; E11.9 Type 2 diabetes mellitus without complications; E78.5 Hyperlipidemia, unspecified; N28.9 Disorder of kidney and ureter, unspecified; I25.10 Atherosclerotic heart disease of native coronary artery without angina pectoris
CPT/HCPCS: 36415; 80053; 81001; 83690; 84484; 85025; 87086; 93005; 99285